=== PATIENT | male | born 1940 | race Caucasian/White ===

== ENCOUNTER → 2017-06-17 08:36 | Outpatient (CLI) | payer MEDICARE, OTHER, SELFPAY ==
[2017-06-17 13:27] LABS: Alanine Aminotransferase 32 U/L (12-78); Albumin Level 3.7 gm/dL (3.4-5.0); Albumin/Globulin Ratio 1.4 (1.1-1.8); Alkaline Phosphatase 77 U/L (46-116); Aspartate Amino Transferase 19 U/L (15-37); Bilirubin,Total 0.5 mg/dL (0.2-1.0); Blood Urea Nitrogen 17 mg/dL (7-18); Calcium 8.9 mg/dL (8.5-10.1); Carbon Dioxide 33 mmol/L (21.0-32.0); Chloride 101 mmol/L (98-107); Cholesterol 131 mg/dL (140-200); Creatinine,Serum 0.87 mg/dL (0.70-1.30); Estimated Glomerular Filt Rate 85 ml/min (>60); GFR (African American) 103 ML/MIN (>60); Globulin 2.7 gm/dl (1.3-3.2); Glucose 86 mg/dL (74-106); HDL Cholesterol 64 mg/dL (27-67); LDL Cholesterol 61 mg/dL (0-130); Sodium 138 mmol/L (136-145); Total Protein,Serum 6.4 gm/dL (6.4-8.2); Triglycerides 30 mg/dL (30-200); VLDL Cholesterol 6 mg/dL (0-40)
[2017-06-17 13:29] LABS: Basophils # 0.1 K/mm3 (0-0.2); Basophils % 0.7 % (0.1-2.0); Eosinophils # 0.3 K/mm3 (0.0-0.4); Eosinophils % 5.1 % (0.1-12.0); Hematocrit 45.8 % (42.0-52.0); Lymphocytes # 2.2 K/mm3 (0.7-4.5); Lymphocytes % 33.3 K/mm3 (10-50); Mean Corpuscular HGB Conc 32.8 g/dL (31.8-35.4); Mean Corpuscular Hemoglobin 30.2 pg (27.0-31.2); Mean Corpuscular Volume 92.2 fl (80-94); Mean Platelet Volume 7.4 fl (7.4-10.4); Monocytes # 0.4 K/mm3 (0.1-1.0); Monocytes % 6.1 % (1.7-9.3); Neutrophils # 3.6 K/mm3 (1.8-7.8); Neutrophils % 54.8 % (37.0-80.0); Platelet Count 210 K/mm3 (142-424); Red Blood Count 4.97 M/mm3 (4.60-6.20); Red Cell Distribution Width 13.3 % (11.5-17.5); White Blood Count 6.6 K/mm3 (4.8-10.8)
== END ==
PROVIDERS: PCP Internal Medicine Adolescent Medicine; Visit Provider Internal Medicine Adolescent Medicine
DX: E78.5 Hyperlipidemia, unspecified (principal); I63.50 Cerebral infarction due to unspecified occlusion or stenosis of unspecified cerebral artery
CPT/HCPCS: 36415; 80053; 80061; 85025

== ENCOUNTER 2017-09-03 11:15 | Observation (INO) ==
--- NOTE | 2017-09-03 11:54 | History & Physical Report ---
*Admission Date: 09/03/17 *Chief complaint: Dizziness and fatigue *History of present illness: 77-year-old white male with history of peripheral neuropathy, significant kyphosis with balance problems and hypertension who presented to my office this morning with a chief complaint of worsening dizziness and fatigue and sensation of falling. He denies falls at home, and reports no chest pain, dyspnea with exertion or palpitations. On presentation to my office he was noted to be hypotensive with blood pressure in the 80 range systolic, along with tachycardia with heart rate in the 140 range. EKG confirmed supraventricular tachycardia, and patient was urgently admitted to hospital for further evaluation. He denies cardiac symptoms, denies leg swelling, and has never had tachycardia or atrial fibrillation to his knowledge. [facility] History I have reviewed the patient's past medical history: Yes Medical History: Reports:: Hyperlipidemia, Hypertension Comment: Idiopathic peripheral neuropathy. Significant kyphoscoliosis with postural issues Laterality Cases: Left: Arthroscopy Shoulder Other Surgeries: Yes: Cancer Surgery (Prostatectomy) - *Social History Educational Level: Completed College Smoking Status: Never smoker Review of Systems - Review of Systems Review of systems:: unable to obtain, other, pertinent systems reviewed and negative unless documented below - Constitutional Denies body ache(s), Denies chills - Eyes Denies blind spots, Denies blurry vision - ENT Denies abnormal hearing - *Cardiovascular Denies chest pain, Denies shortness of breath, Denies irregular heart rhythm, Denies leg swelling - *Respiratory Denies chest congestion, Denies shortness of breath - *Gastrointestinal Denies abdominal pain - *Musculoskeletal Denies abnormal walking - *Neurologic Reports abnormal walking, Reports unsteadiness, Reports dizziness Meds Allergies Allergy/AdvReac Type Severity Reaction Status Date / Time No Known Allergies Allergy Unverified 05/19/17 13:59 Exam - Constitutional no acute distress Comments: Patient is pleasant, talkative, oriented 3. His kyphotic posture is noted as previously. Walks well. Heart rate tachycardic, apical pulse 140, radial pulse 80. Occasional ectopic beats. No edema noted. Lungs are clear. Abdomen soft. Assessment and Plan (1) SVT (supraventricular tachycardia) Status: Acute Category: Medical Code(s): I47.1 - Supraventricular tachycardia Most likely with new onset atrial fibrillation given his long-standing hypertension. Admit to hospital, check echocardiogram and labs. Consultation for cardiology. May need semiurgent cardioversion given his hypotensive issues here. (2) Hypotension Status: Acute Category: Medical Code(s): I95.9 - Hypotension, unspecified
--- NOTE | 2017-09-03 13:08 | Progress Note ---
[facility] Anesthesia Checklist - Patient Identification Patient Identification: Arm Band, Verbal (Name & ) - Structural Data Admitted From: Inpatient Planned Operative Procedure/s: judson Consent for Planned Operative Procedure(s) Verified: Yes Verified Documents: Surgical Consent, History and Physical - NPO Status Verified Time NPO: 07:30 - Chart Verification Results Verified: CBC, BMP - Additional verifications Patient : No Anesthesia Reactions: No Hx Blood Transfusions: No Blood Transfusion Reaction: No Cephalosporin Allergy: No Previous Colonoscopy: No - Cardiovascular Assessment Heart Sounds: S1 & S2 Pulse Rhythm: Irregular Peripheral Edema: No - Airway Assessment C-Spine Mobility Assessed: Yes TMJ Mobility Assessed: Yes Dentition: Good Dentition - Neurological Assessment Level of Consciousness: Awake, Alert, Appropriate Hx Seizures: No Numbness or tingling in extremities: No - Anesthesia Plan Anesthesia Risk discussed: Yes Anesthesia Plan: Verified ASA Class: III Anesthesia Type: MAC [facility] Anesthesia HX I have reviewed the patient's past medical history: Yes Medical History: Reports:: Hyperlipidemia, Hypertension Laterality Cases: Left: Arthroscopy Shoulder Other Surgeries: Yes: Cancer Surgery (Prostatectomy) *Family Hx:: Unable to obtain
[2017-09-03 13:11] LABS: Basophils % 0.4 % (0.1-2.0); Eosinophils # 0.1 K/mm3 (0.0-0.4); Eosinophils % 2.1 % (0.1-12.0); Hematocrit 50.6 % (42.0-52.0); Hemoglobin 16.4 g/dL (14.1-18.0); Lymphocytes # 2.4 K/mm3 (0.7-4.5); Lymphocytes % 36.4 K/mm3 (10-50); Mean Corpuscular HGB Conc 32.5 g/dL (31.8-35.4); Mean Corpuscular Hemoglobin 30.5 pg (27.0-31.2); Mean Corpuscular Volume 93.9 fl (80-94); Mean Platelet Volume 7.7 fl (7.4-10.4); Monocytes # 0.4 K/mm3 (0.1-1.0); Monocytes % 6.3 % (1.7-9.3); Neutrophils # 3.7 K/mm3 (1.8-7.8); Neutrophils % 54.8 % (37.0-80.0); Platelet Count 220 K/mm3 (142-424); Red Blood Count 5.39 M/mm3 (4.60-6.20); White Blood Count 6.7 K/mm3 (4.8-10.8)
[2017-09-03 13:30] LABS: Chol/HDL Ratio 2.1 (1-3.5); Thyroid Stimulating Hormone 1.44 uIU/ml (0.358-3.740)
--- NOTE | 2017-09-03 13:36 | Consult Report ---
History of Present Illness Consult date: 09/03/17 Requesting physician: Fernando Rick Chief complaint: Dizziness Additional Medical History:: 1. Hypertension 2. Peripheral neuropathy with chronic gait instability. 3. Hyperlipidemia 4. Questionable TIA 1 year ago (early 2016) History of present illness: 77-year-old white male with history of peripheral neuropathy, significant kyphosis with balance problems and hypertension who presented to my office this morning with a chief complaint of worsening dizziness and fatigue and sensation of falling. He denies falls at home, and reports no chest pain, dyspnea with exertion or palpitations. On presentation to my office he was noted to be hypotensive with blood pressure in the 80 range systolic, along with tachycardia with heart rate in the 140 range. EKG confirmed supraventricular tachycardia, and patient was urgently admitted to hospital for further evaluation. He denies cardiac symptoms, denies leg swelling, and has never had tachycardia or atrial fibrillation to his knowledge. Above per Dr. Rick. Patient was seen by Dr. Worthy in the hospital with carotid sinus massage slowing the rhythm down to see underlying atrial flutter. Patient continued in atrial flutter with a rate in the 140s. Denied chest pain, pressure or tightness. [facility] History Medical History: Reports:: Hyperlipidemia, Hypertension Denies:: Seizures Other Medical History: Denies: Blood Transfusion Reaction Laterality Cases: Left: Arthroscopy Shoulder Other Surgeries: Yes: Cancer Surgery (Prostatectomy) - *Social History Educational Level: Completed College Smoking Status: Never smoker *Family Hx:: Unable to obtain Meds Allergies Allergy/AdvReac Type Severity Reaction Status Date / Time No Known Allergies Allergy Unverified 05/19/17 13:59 Review of Systems - Constitutional Denies chills, Denies excessive sweating - ENT Reports poor balance - *Cardiovascular Reports lightheadedness - *Respiratory Reports shortness of breath with activity - *Gastrointestinal Denies abdominal pain - *Musculoskeletal Reports numbness - *Neurologic Reports abnormal walking, Reports unsteadiness, Reports dizziness, Denies abnormal hearing Exam Vital signs and Labs for Last 24 Hours: Temp Pulse Resp BP Pulse Ox 98.0 F 140 H 22 94/73 100 09/03/17 12:37 09/03/17 12:37 09/03/17 12:37 09/03/17 12:37 09/03/17 12:37 Laboratory Results - last 24 hr 09/03/17 12:45: Triglycerides 50, Cholesterol 130 L, LDL Cholesterol 58, VLDL Cholesterol 10, HDL Cholesterol 62, Cholesterol/HDL Ratio 2.1, TSH 1.44 09/03/17 12:45: WBC 6.7, RBC 5.39, Hgb 16.4, Hct 50.6, MCV 93.9, MCH 30.5, MCHC 32.5, RDW 13.0, Plt Count 220, MPV 7.7, Neut % (Auto) 54.8, Lymph % (Auto) 36.4 , [place] % (Auto) 6.3, Eos % (Auto) 2.1, Baso % (Auto) 0.4, Neut # (Auto) 3.7, Lymph # (Auto) 2.4, [place] # (Auto) 0.4, Eos # (Auto) 0.1, Baso # (Auto) 0.0 I & O for Last 24 hours: Intake & Output 09/01/17 09/02/17 09/03/17 09/04/17 11:59 11:59 11:59 11:59 Weight 143 lb - *Routine Neck Exam Absent: JVD, carotid bruit - *Routine Respiratory Exam Present: CTA bilaterally - *Routine Cardiovascular Exam Present: tachycardia - *Routine Extremities Exam Absent: edema - *Routine Neurological Exam Present: alert, oriented X3, moving all extremities Assessment and Plan (1) SVT (supraventricular tachycardia) Current visit: No Status: Acute Category: Medical Code(s): I47.1 - Supraventricular tachycardia (2) Hypotension Current visit: No Status: Acute Category: Medical Code(s): I95.9 - Hypotension, unspecified (3) Paroxysmal atrial flutter Current visit: Yes Status: Acute Category: Medical Code(s): I48.92 - Unspecified atrial flutter - Assessment and plan all Dx Assessment and Plan for all problems:: 1. Plan was to take the patient to the cardiac Director [facility] to perform a MARIKA and cardioversion. When the patient was moving from the stretcher to the table in the cardiac Director [facility] he converted to sinus rhythm at a rate of about 65 bpm within a couple of minutes the patient again went back into atrial flutter with a rate in the 130s-140s. IV Lopressor 5 mg was given without conversion to sinus rhythm. Patient was then given an IV bolus of Cardizem 10 mg with a Cardizem drip started at 5 mg/h. 2. Transthoracic echocardiogram will be obtained 3. The plan would be to try to restore normal sinus rhythm with IV Cardizem, however, if hypotension becomes problematic, then consideration for transfer to tertiary center for ablation should be considered.
[2017-09-03 14:08] LABS: Anion Gap 10.1 mEq/L (5-15); Blood Urea Nitrogen 30 mg/dL (7-18); Carbon Dioxide 32 mmol/L (21.0-32.0); Chloride 99 mmol/L (98-107); Creatine Kinase 73 U/L (39-308); Glucose 98 mg/dL (74-106); Potassium 4.1 mmoL/L (3.5-5.1); Sodium 137 mmol/L (136-145)
[2017-09-04 06:55] VITALS: BP 95/51
--- NOTE | 2017-09-04 07:51 | Pharmacy Consult Notes ---
[facility] Pharmacy VTE Monitoring - Patient Demographics Admission date: 09/03/17 Report Date: 09/04/17 Time: 07:51 Allergies/Adverse Reactions: Patient Allergies No Known Allergies Allergy (Unverified 05/19/17 13:59) Height: 1.7 m Weight: 65.913 kg Patient Problems: Current Active Problems Paroxysmal atrial flutter (Acute) - VTE Risk Labs: VTE Related Lab Results Hgb 16.4 g/dL (14.1-18.0) 09/03/17 12:45 Hct 50.6 % (42.0-52.0) 09/03/17 12:45 Plt Count 220 K/mm3 (142-424) 09/03/17 12:45 BUN 30 mg/dL (7-18) H 09/03/17 12:45 Creatinine 1.04 mg/dL (0.70-1.30) 09/03/17 12:45 Estimated Creat Clear 54 mL/min (0-300) 09/03/17 12:45 Was VTE Risk Assessment Performed: Yes VTE Score: 1 VTE Risk Level: Very Low Risk Clinical Trial Participant: No - Prophylaxis VTE Prophylaxis Ordered?: Yes Types of VTE Prophylaxis: TEDS Knee High, Pharmacological Location of Applied Device: Bilateral Lower Extremeties Pharmacologic Type: Enoxaparin
--- NOTE | 2017-09-04 08:50 | Discharge Summary ---
General - General Admission date: 09/03/17 Discharge date: 09/04/17 HPI HPI: 77-year-old white male with history of peripheral neuropathy, significant kyphosis with balance problems and hypertension who presented to my office this morning with a chief complaint of worsening dizziness and fatigue and sensation of falling. He denies falls at home, and reports no chest pain, dyspnea with exertion or palpitations. On presentation to my office he was noted to be hypotensive with blood pressure in the 80 range systolic, along with tachycardia with heart rate in the 140 range. EKG confirmed supraventricular tachycardia, and patient was urgently admitted to hospital for further evaluation. He denies cardiac symptoms, denies leg swelling, and has never had tachycardia or atrial fibrillation to his knowledge. Hospital Course Hospital Course: Patient was admitted to hospital, and placed on IV fluids and telemetry monitoring. Carotid massage maneuvers with ventricular slowing revealed patient was in atrial flutter. Patient was taken to cardiology suite by our cardiology service to perform MARIKA to evaluate for cardioversion after valvular examination, and spontaneously converted when moving over to the table from the stretcher. However, he then went back into the SVT/A. fib at a rhythm. MARIKA was done, showing no valvular pathology of significance but ejection fraction diminished at 40%. Patient was then taken back to stepdown unit, placed on Cardizem drip with careful blood pressure monitoring. About 2 hours after Cardizem infusion patient converted to sinus rhythm, with resting sinus rates in the low 50s. Blood pressure actually improved into the 100s-110 range and patient felt much better. Through the night he has been in sinus rhythm, in the 40s while sleeping and when awakened and stirring around up in the low 60s. He feels well. I discussed case with EP at [facility]-were patient wishes to be further evaluated-Dr. Moore -recommended discharge home on oral Cardizem, anticoagulation with Xarelto and close follow-up with his office. We will be faxing face sheet information, medicine list and this document to his office and patient is instructed to contact me over the weekend or report to the emergency department if heart rate elevates back into the 140s. Medicines for blood pressure will be held as noted in the chart summary as below. Objective Vital signs: Temp Pulse Resp BP Pulse Ox 97.8 F 61 20 95/51 99 09/04/17 04:00 09/04/17 06:45 09/04/17 06:45 09/04/17 06:45 09/04/17 06:45 Narrative: Patient is pleasant, alert, oriented 3. Heart rate regular in the low 60s. Blood pressure 110/80. Cranial nerves intact. Oropharynx clear. Lungs are clear, heart rate regular as noted above. No edema, previously noted kyphoscoliosis. Results Labs on day of discharge: Labs from last 24 hours 09/03/17 09/03/17 09/03/17 23:45 20:50 17:55 WBC RBC Hgb Hct MCV MCH MCHC RDW Plt Count MPV Neut % (Auto) Lymph % (Auto) [place] % (Auto) Eos % (Auto) Baso % (Auto) Neut # (Auto) Lymph # (Auto) [place] # (Auto) Eos # (Auto) Baso # (Auto) Sodium Potassium Chloride Carbon Dioxide Anion Gap BUN Creatinine Estimated Creat Clear Estimated GFR Est GFR ( Amer) Glucose Magnesium Total Creatine Kinase CK-MB (CK-2) CK-MB (CK-2) Rel Index Troponin I 0.03 0.02 < 0.02 B-Natriuretic Peptide Triglycerides Cholesterol LDL Cholesterol VLDL Cholesterol HDL Cholesterol Cholesterol/HDL Ratio TSH 09/03/17 09/03/17 09/03/17 15:00 12:45 12:45 WBC RBC Hgb Hct MCV MCH MCHC RDW Plt Count MPV Neut % (Auto) Lymph % (Auto) [place] % (Auto) Eos % (Auto) Baso % (Auto) Neut # (Auto) Lymph # (Auto) [place] # (Auto) Eos # (Auto) Baso # (Auto) Sodium 137 Potassium 4.1 Chloride 99 Carbon Dioxide 32 Anion Gap 10.1 BUN 30 H Creatinine 1.04 Estimated Creat Clear 54 Estimated GFR 69 Est GFR ( Amer) 84 Glucose 98 Magnesium 1.8 Total Creatine Kinase 73 CK-MB (CK-2) 1.4 CK-MB (CK-2) Rel Index 1.9 Troponin I < 0.02 < 0.02 B-Natriuretic Peptide 135 H Triglycerides Cholesterol LDL Cholesterol VLDL Cholesterol HDL Cholesterol Cholesterol/HDL Ratio TSH 09/03/17 09/03/17 12:45 12:45 WBC 6.7 RBC 5.39 Hgb 16.4 Hct 50.6 MCV 93.9 MCH 30.5 MCHC 32.5 RDW 13.0 Plt Count 220 MPV 7.7 Neut % (Auto) 54.8 Lymph % (Auto) 36.4 [place] % (Auto) 6.3 Eos % (Auto) 2.1 Baso % (Auto) 0.4 Neut # (Auto) 3.7 Lymph # (Auto) 2.4 [place] # (Auto) 0.4 Eos # (Auto) 0.1 Baso # (Auto) 0.0 Sodium Potassium Chloride Carbon Dioxide Anion Gap BUN Creatinine Estimated Creat Clear Estimated GFR Est GFR ( Amer) Glucose Magnesium Total Creatine Kinase CK-MB (CK-2) CK-MB (CK-2) Rel Index Troponin I B-Natriuretic Peptide Triglycerides 50 Cholesterol 130 L LDL Cholesterol 58 VLDL Cholesterol 10 HDL Cholesterol 62 Cholesterol/HDL Ratio 2.1 TSH 1.44 DS: Diagnosis - Discharge Diagnosis (1) SVT (supraventricular tachycardia) Status: Acute (2) Hypotension Status: Acute (3) Paroxysmal atrial flutter Status: Acute Discharge Plan - Patient Discharge Instructions ACTIVITY: Limited activity DIET: continue same diet - Follow up Plan Follow up with: Mxaimo Moore [Referring] - Fernando Rick MD [Primary Care Provider] - 09/15/17 Disposition: Home, Self-Correction Medications: Home Medications Medication Instructions Recorded Confirmed Type Atorvastatin Calcium [Atorvastatin 80 mg PO DAILY 09/03/17 09/03/17 History 80mg Tab] Clopidogrel Bisulfate [Plavix 75mg 75 mg PO DAILY 09/03/17 09/03/17 History Tab] Duloxetine HCl [Duloxetine HCl] 60 mg PO DAILY 09/03/17 09/03/17 History buPROPion HCl [Wellbutrin SR 150mg 150 mg PO DAILY 09/03/17 09/03/17 History Tablet] Prescriptions/Medication Reconciliation: New dilTIAZem HCl [Cardizem CD 120mg Cap] 120 mg PO DAILY #30 cap Rivaroxaban [Xarelto] 20 mg PO DAILY 30 Days #30 tab Continue Duloxetine HCl [Duloxetine HCl] 60 mg PO DAILY buPROPion HCl [Wellbutrin SR 150mg Tablet] 150 mg PO DAILY Atorvastatin Calcium [Atorvastatin 80mg Tab] 80 mg PO DAILY Carvedilol [Carvedilol 12.5mg Tab] 12.5 mg PO DAILY 30 Days #30 tab Discontinued Clopidogrel Bisulfate [Plavix 75mg Tab] 75 mg PO DAILY
--- NOTE | 2017-09-04 13:58 | Cardiology Report ---
PROCEDURE: 2-D M-mode and color Doppler study INDICATIONS FOR THE TEST: Chest pain COPD Heart Murmur Tobacco Smoking Palpitations Fatigue Syncope Edema Hypertension Diabetes Mellitus Rheumatic Fever SOBXDOE Obesity Hyperlipidemia Family History HD Additional History AF/FLUTTER PATIENT INFORMATION HEIGHT: 67 WEIGHT:148 GENDER: Male B/P:95/62 2-D/M-MODE INTERPRETATION: 2-D MEASUREMENTS OBSERVED VALUES IN CMS Right Ventricular Dimension (RVDd) 3.3 Interventricular Septum (Thickness)(IVsd) 1.0 Left Ventricular Internal Dimensions(LVIDd) 4.6 Left Ventricular Posterior Wall (Thickness)(LVPWd) 1.2 Aortic Root 4.6 Aortic Cusp Separation 1.4 Left Atrial Dimensions (LAD) 3.1 2D 1. Technically difficult study because of the patient's factor and poor acoustic windows, endocardial surfaces and valvular structures are poorly visualized. 2. The left atrium is qualitatively mildly enlarged, left ventricle is normal size, there is mild concentric left ventricular hypertrophy, visually estimated ejection fraction 55% with no obvious regional wall motion abnormality. 3. The right atrium and right ventricle are qualitatively mildly enlarged with normal contractility. 4. The aortic valve is thickened and calcified with restriction the leaflet mobility. 5. The mitral and tricuspid valve leaflets are minimally thickened. 6. The pulmonic valve is poorly visualized. 7. No significant pericardial effusion noted. DOPPLER INTERROGATION: Doppler interrogation of the aortic, mitral and tricuspid valve reveals presence of mild mitral and tricuspid regurgitation, calculated right ventricular systolic pressure is 28 mmHg, diastolic parameters are inconclusive. The aortic out flow velocity is not significantly increased in this study to suggest severe aortic stenosis. CONCLUSION: 1. Technically difficult study because of the patient's factor and poor acoustic windows, endocardial surfaces and valvular structures are poorly visualized. 2. Mildly enlarged left atrium, normal left ventricular size, mild concentric left ventricular hypertrophy, visually estimated ejection fraction 55% with no obvious regional wall motion abnormality, diastolic parameters are inconclusive. 3. Thickened and calcified aortic valve with restriction the leaflet mobility, however Doppler was not suggestive of any significant aortic stenosis, there is no aortic insufficiency present. 4. Mild mitral and tricuspid regurgitation, calculated right ventricular systolic pressure is 28 mmHg. 5. Mildly enlarged right ventricle with normal contractility. 6. No significant pericardial effusion noted.
== END 2017-09-04 10:18 | disposition home or self-care (01) ==
LOC: 2ND
PROVIDERS: ADMIT Internal Medicine Adolescent Medicine; ATTEND Internal Medicine Adolescent Medicine

== ENCOUNTER → 2019-06-29 11:25 | Outpatient (CLI) | payer MEDICARE, OTHER, SELFPAY ==
--- NOTE | 2019-06-29 11:34 | XR_ITS ---
PROCEDURE: XR KUB CLINICAL INDICATION: FECAL SMEARING COMPARISON: No exams were available for comparison FINDINGS: There are surgical clips at the prostate region in the lower pelvis. 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 No intestinal obstruction. There is a mild amount of retained colonic feces in the right colon but no evidence of rectal fecal impaction IMPRESSION: No acute findings. Dictated by: Vishnu Mcclain MD 06/29/2019 12:52 Electronically signed by Vishnu Mcclain MD in [facility] 06/29/2019 12:52
== END ==
PROVIDERS: PCP Internal Medicine Adolescent Medicine; Visit Provider Internal Medicine Adolescent Medicine
DX: R15.1 Fecal smearing (principal)
CPT/HCPCS: 74018

== ENCOUNTER 2019-12-13 09:52 | Outpatient (RCR) | payer MEDICARE, OTHER, SELFPAY ==
--- NOTE | 2019-12-13 14:09 | HMH.PTOPEV ---
PT Outpatient Evaluation Rehab PT Outpatient Evaluation Start: 12/13/19 12:30 Freq: Status: Active Protocol: Document 12/13/19 12:30 [email or web address] (Rec: 12/13/19 14:09 [email or web address] [id number]) Electronically Signed By Sanchez Rivas, PT 12/13/19 12:30 Outpatient Therapy Subjective History Subjective History Pt. is a 79 year old male who presents to outpatient PT w/ complaints of chronic and activity dependent BLE weakness. Pt. reports feeling weak behind the knees w/ standing/walking /riding the lawnmower. Pt. reports no falls in the past 6 months. Pt. also denies LOB or having to catch himself to prevent a fall from LOB. Pt. reports I only came here because my had set this appointment up for me. Pt. reported wanting to discontinue Physical Therapy services after today and stated I'd better not get committed. Current medications include Duloxetine , Carvedilol, Eliquis, Memantine, Donepezil, and Mirtazapine. PMH denies having surgeries in the past. Chief Complaint Weakness Symptoms Relieved By Rest/Positioning Symptoms Aggravated By Standing Prior Functional Limitations None Current Functional Limitations None Symptom Description Activity Dependent Level of pain today (0-10) 0 Pain scale - at its best (0-10) 0 Pain scale - at its worst (0-10) 0 Hip/Knee Eval Gait Observation General Gait Pattern Observation No Deviations/Normal Assistive Device Assistive Devices None / NA Palpation Tenderness bilateral Knee Palpation Finding None/Normal Hip Palpation Findings None/Normal MMT Hip Strength Reason Not Measured WFL Knee Strength Reason Not Measured WFL Knee Extensors Muscle Tone Description Normal Knee Flexors Muscle Tone Description Normal Hip Extensors Muscle Tone Description Normal Hip Flexors Muscle Tone Description Normal ROM Hip ROM Reason Not Measured Within Functional Limits Knee ROM Reason Not Measured Within Functional Limits DTR Rt Patellar 2+ Lt Patellar 2+ Rt Ankle 0 Lt Ankle
== END 2019-12-13 16:12 | disposition home or self-care (01) ==
LOC: PT.CARL 09:52
PROVIDERS: PCP Internal Medicine Adolescent Medicine; Visit Provider Internal Medicine Adolescent Medicine
DX: R29.898 Other symptoms and signs involving the musculoskeletal system (principal)
CPT/HCPCS: 97110; 97163

== ENCOUNTER 2020-04-17 11:00 | Outpatient (RCR) | payer MEDICARE, OTHER, SELFPAY ==
--- NOTE | 2020-04-12 14:54 | HMH.PTOPEV ---
PT Outpatient Evaluation Rehab PT Outpatient Evaluation Start: 04/12/20 13:45 Freq: Status: Active Protocol: Document 04/12/20 13:45 [email or web address] (Rec: 04/12/20 14:53 [email or web address] [id number]) Electronically Signed By Sanchez Rivas, PT 04/12/20 13:45 Outpatient Therapy Subjective History Subjective History Pt. is a 79 year old male who presents to Outpatient PT clinic w/ complaints of activity dependent and acute BLE P! and imbalance of insidious onset last week. Pt. reports symptoms worsen w/ prolonged walking. Pt. denies currently/ previously(prior to this date) ambulating w/ an AD. Pt. denies having any recent falls , but does report grabbing onto surfaces around the house when he's ambulating to avoid falling. Pt. reports having one step to get into the garage and multiple steps to ascend/descend into the basement. Current medications include Duloxetine, Carvedilol , Eliquis, Memantine, Donepezil, and Mirtazapine. PMH denies having surgeries in the past. Chief Complaint Pain,Other Symptom Type Ache,Other Symptoms Relieved By Rest/Positioning Symptoms Aggravated By Standing,Physical Activity, Twisting,Walking Prior Functional Limitations None Current Functional Limitations Standing,Recreation Activity, Walking,Stairs,Balance Symptom Description Activity Dependent Level of pain today (0-10) 0 Pain scale - at its best (0-10) 0 Pain scale - at its worst (0-10) 3 Hip/Knee Eval Gait Observation General Gait Pattern Observation Antalgic Gait,Ataxic Gait, Shuffling Step,Hips Posterior to CHENG Assistive Device Assistive Devices None / NA Palpation Tenderness bilateral Knee Palpation Finding None/Normal Hip Palpation Findings None/Normal MMT Hip Flexion Strength Grade 4 Good Hip Abduction Strength Grade 4- Good- Hip Adduction Strength Grade 4- Good- Hip Extension Strength Grade 4- Good- Gluteus Hang Strength Grade 4- Good-
== END 2020-05-22 16:44 | disposition home or self-care (01) ==
LOC: PT.CARL 11:00
PROVIDERS: PCP Internal Medicine Adolescent Medicine; Visit Provider Internal Medicine Adolescent Medicine
DX: R27.0 Ataxia, unspecified (principal)
CPT/HCPCS: 97110; 97112; 97163

== ENCOUNTER → 2020-11-16 14:04 | Outpatient (CLI) | payer MEDICARE, OTHER, SELFPAY ==
--- NOTE | 2020-11-16 14:14 | XR_ITS ---
PROCEDURE: XR SACROILIAC JOINT BI MIN 3V X-ray left hip 2-3 view with pelvis X-ray right hip 2-3 view with pelvis X-ray lumbar spine minimum four views CLINICAL INDICATION: LOW BACK PAIN AT MULTIPLE SITES COMPARISON: CR XR HIP LT 2-3V W/PELVIS from 11/16/2020 CR XR HIP RT 2-3V W/PELVIS from 11/16/2020 CR XR LUMBAR SPINE MIN 4V from 11/16/2020 FINDINGS: Views of the bilateral SI joints show minimal sclerotic change. No lytic or blastic lesion noted. AP pelvis and AP and frogleg views of both hips show severe zpre-sj-qqnn degenerative changes of both hip joints with extensive sclerotic change and multiple subchondral cysts. Surgical clips noted in the pelvis. Minimal sclerotic change of the SI joints. No acute fracture or dislocation of either hip. Five views of the lumbar spine show severe degenerative change of L5-S1 and moderate to severe degenerative change of L4-5. Moderate diffuse degenerative change elsewhere throughout the lumbar spine and some degenerative change of the lower thoracic spine noted. Mild dextroscoliosis. Moderate bilateral facet spondylosis of L4-5 and L5-S1 is present. IMPRESSION: Minimal sclerotic change of the SI joints. Severe vaio-je-kvnl degenerative changes of both hip joints. No acute fracture or dislocation of the pelvis or hips. Severe degenerative change of L5-S1 and moderate to severe degenerative change of L4-5, moderate diffuse degenerative change elsewhere throughout the lumbar spine. Moderate bilateral facet spondylosis of L4-5 and L5-S1. No acute fracture or subluxation of the lumbar spine. Dictated by: Ck Turcios MD 11/16/2020 16:23 Ck Turcios MD in [place] 11/16/2020 16:23
--- NOTE | 2020-11-16 14:14 | XR_ITS ---
PROCEDURE: XR SACROILIAC JOINT BI MIN 3V X-ray left hip 2-3 view with pelvis X-ray right hip 2-3 view with pelvis X-ray lumbar spine minimum four views CLINICAL INDICATION: LOW BACK PAIN AT MULTIPLE SITES COMPARISON: CR XR HIP LT 2-3V W/PELVIS from 11/16/2020 CR XR HIP RT 2-3V W/PELVIS from 11/16/2020 CR XR LUMBAR SPINE MIN 4V from 11/16/2020 FINDINGS: Views of the bilateral SI joints show minimal sclerotic change. No lytic or blastic lesion noted. AP pelvis and AP and frogleg views of both hips show severe ytpn-vi-lfvb degenerative changes of both hip joints with extensive sclerotic change and multiple subchondral cysts. Surgical clips noted in the pelvis. Minimal sclerotic change of the SI joints. No acute fracture or dislocation of either hip. Five views of the lumbar spine show severe degenerative change of L5-S1 and moderate to severe degenerative change of L4-5. Moderate diffuse degenerative change elsewhere throughout the lumbar spine and some degenerative change of the lower thoracic spine noted. Mild dextroscoliosis. Moderate bilateral facet spondylosis of L4-5 and L5-S1 is present. IMPRESSION: Minimal sclerotic change of the SI joints. Severe rjlb-ul-kkvn degenerative changes of both hip joints. No acute fracture or dislocation of the pelvis or hips. Severe degenerative change of L5-S1 and moderate to severe degenerative change of L4-5, moderate diffuse degenerative change elsewhere throughout the lumbar spine. Moderate bilateral facet spondylosis of L4-5 and L5-S1. No acute fracture or subluxation of the lumbar spine. Dictated by: Ck Turcios MD 11/16/2020 16:23 Ck Turcios MD in [place] 11/16/2020 16:23
--- NOTE | 2020-11-16 14:14 | XR_ITS ---
PROCEDURE: XR SACROILIAC JOINT BI MIN 3V X-ray left hip 2-3 view with pelvis X-ray right hip 2-3 view with pelvis X-ray lumbar spine minimum four views CLINICAL INDICATION: LOW BACK PAIN AT MULTIPLE SITES COMPARISON: CR XR HIP LT 2-3V W/PELVIS from 11/16/2020 CR XR HIP RT 2-3V W/PELVIS from 11/16/2020 CR XR LUMBAR SPINE MIN 4V from 11/16/2020 FINDINGS: Views of the bilateral SI joints show minimal sclerotic change. No lytic or blastic lesion noted. AP pelvis and AP and frogleg views of both hips show severe gtqv-yx-tlvc degenerative changes of both hip joints with extensive sclerotic change and multiple subchondral cysts. Surgical clips noted in the pelvis. Minimal sclerotic change of the SI joints. No acute fracture or dislocation of either hip. Five views of the lumbar spine show severe degenerative change of L5-S1 and moderate to severe degenerative change of L4-5. Moderate diffuse degenerative change elsewhere throughout the lumbar spine and some degenerative change of the lower thoracic spine noted. Mild dextroscoliosis. Moderate bilateral facet spondylosis of L4-5 and L5-S1 is present. IMPRESSION: Minimal sclerotic change of the SI joints. Severe ercg-ys-yxfa degenerative changes of both hip joints. No acute fracture or dislocation of the pelvis or hips. Severe degenerative change of L5-S1 and moderate to severe degenerative change of L4-5, moderate diffuse degenerative change elsewhere throughout the lumbar spine. Moderate bilateral facet spondylosis of L4-5 and L5-S1. No acute fracture or subluxation of the lumbar spine. Dictated by: Ck Turcios MD 11/16/2020 16:23 Ck Turcios MD in [place] 11/16/2020 16:23
--- NOTE | 2020-11-16 14:14 | XR_ITS ---
PROCEDURE: XR SACROILIAC JOINT BI MIN 3V X-ray left hip 2-3 view with pelvis X-ray right hip 2-3 view with pelvis X-ray lumbar spine minimum four views CLINICAL INDICATION: LOW BACK PAIN AT MULTIPLE SITES COMPARISON: CR XR HIP LT 2-3V W/PELVIS from 11/16/2020 CR XR HIP RT 2-3V W/PELVIS from 11/16/2020 CR XR LUMBAR SPINE MIN 4V from 11/16/2020 FINDINGS: Views of the bilateral SI joints show minimal sclerotic change. No lytic or blastic lesion noted. AP pelvis and AP and frogleg views of both hips show severe pqqv-dn-pims degenerative changes of both hip joints with extensive sclerotic change and multiple subchondral cysts. Surgical clips noted in the pelvis. Minimal sclerotic change of the SI joints. No acute fracture or dislocation of either hip. Five views of the lumbar spine show severe degenerative change of L5-S1 and moderate to severe degenerative change of L4-5. Moderate diffuse degenerative change elsewhere throughout the lumbar spine and some degenerative change of the lower thoracic spine noted. Mild dextroscoliosis. Moderate bilateral facet spondylosis of L4-5 and L5-S1 is present. IMPRESSION: Minimal sclerotic change of the SI joints. Severe kikh-pr-uomb degenerative changes of both hip joints. No acute fracture or dislocation of the pelvis or hips. Severe degenerative change of L5-S1 and moderate to severe degenerative change of L4-5, moderate diffuse degenerative change elsewhere throughout the lumbar spine. Moderate bilateral facet spondylosis of L4-5 and L5-S1. No acute fracture or subluxation of the lumbar spine. Dictated by: Ck Turcios MD 11/16/2020 16:23 Ck Turcios MD in [place] 11/16/2020 16:23
== END ==
PROVIDERS: PCP Internal Medicine Adolescent Medicine; Visit Provider Internal Medicine Adolescent Medicine
DX: M25.552 Pain in left hip (principal); M25.551 Pain in right hip; M53.3 Sacrococcygeal disorders, not elsewhere classified; M54.5 Low back pain
CPT/HCPCS: 72110; 72202; 73502

== ENCOUNTER → 2021-04-30 19:47 | Outpatient (CLI) | payer MEDICARE, OTHER, SELFPAY ==
[2021-04-30 20:04] LABS: Basophils # 0.1 K/mm3 (0-0.2); Eosinophils # 0.3 K/mm3 (0.0-0.4); Eosinophils % 5.2 % (0.1-12.0); Hematocrit 42.2 % (42.0-52.0); Hemoglobin 14.2 g/dL (14.1-18.0); Lymphocytes # 1.8 K/mm3 (0.7-4.5); Lymphocytes % 31.9 % (10-50); Mean Corpuscular HGB Conc 33.7 g/dL (31.8-35.4); Mean Corpuscular Hemoglobin 30.8 pg (27.0-31.2); Mean Corpuscular Volume 91.4 fl (80-94); Mean Platelet Volume 9.3 fl (7.4-10.4); Monocytes # 0.4 K/mm3 (0.1-1.0); Monocytes % 7.6 % (1.7-9.3); Neutrophils # 3.1 K/mm3 (1.8-7.8); Neutrophils % 54.4 % (37.0-80.0); Platelet Count 249 K/mm3 (142-424); Red Blood Count 4.61 M/mm3 (4.60-6.20); Red Cell Distribution Width 13.3 % (11.5-17.5); White Blood Count 5.8 K/mm3 (4.8-10.8)
[2021-04-30 20:43] LABS: Alanine Aminotransferase 13 U/L (12-78); Albumin Level 3.9 g/dl (3.5-5.0); Albumin/Globulin Ratio 1.4 (1.1-1.8); Alkaline Phosphatase 102 U/L (38-126); Anion Gap 8.5 mEq/L (5-15); Aspartate Amino Transferase 29 U/L (17-59); Bilirubin,Total 0.3 mg/dl (0.2-1.3); Blood Urea Nitrogen 34 mg/dl (9-20); Calcium 9.8 mg/dl (8.4-10.2); Carbon Dioxide 31 mmol/L (22.0-30.0); Chloride 102 mmol/L (98-107); Estimated Glomerular Filt Rate 72 ml/min (>60); GFR (African American) 87 ML/MIN (>60); Globulin 2.8 g/dL (1.3-3.2); Glucose 85 mg/dl (74-100); Potassium 4.5 mmoL/L (3.5-5.1); Sodium 137 mmol/L (136-145); Total Protein,Serum 6.7 g/dl (6.3-8.2)
[2021-04-30 21:31] LABS: Vitamin B12 625 pg/mL (239-931)
[2021-04-30 22:13] LABS: Free Thyroxine Index 3.4 ug/dL (5.93-13.13); T4 (Thyroxine) 9.7 ug/dl (5.53-11.0); Triiodothryronine (T3) Uptake 35 % (23.5-40.5)
[2021-04-30 22:27] LABS: Thyroid Stimulating Hormone 1.87 uIU/mL (0.465-4.68)
== END ==
PROVIDERS: Visit Provider Internal Medicine Adolescent Medicine
DX: I10 Essential (primary) hypertension (principal); R53.81 Other malaise
CPT/HCPCS: 80053; 82607; 84436; 84443; 84479; 85025

== ENCOUNTER → 2022-01-13 13:34 | Outpatient (CLI) | payer MEDICARE, OTHER, SELFPAY ==
--- NOTE | 2022-01-13 13:41 | XR_ITS ---
FINAL REPORT CLINICAL HISTORY: frequent falls COMPARISON: November 17, 2019 FINDINGS: SACROILIAC JOINTS Three views demonstrate no acute fracture or dislocation. There are mild degenerative changes. The sacral arches are intact. No soft tissue abnormality is seen. IMPRESSION: Mild degenerative change of the SI joints with no acute bony abnormality. Reviewed, Interpreted and Dictated by Donnie Abdi III, MD Transcribed by Jade Avalos Authenticated and [facility]
--- NOTE | 2022-01-13 13:41 | XR_ITS ---
FINAL REPORT CLINICAL HISTORY: frequent falls COMPARISON: 11/16/2020 FINDINGS: LEFT HIP Two views of the left hip demonstrate no acute fracture or dislocation. There are severe degenerative changes. The visualized bony structures are well aligned. There are postoperative changes in the lower pelvis. IMPRESSION: Severe degenerative change with no acute bony abnormality. Reviewed, Interpreted and Dictated by Donnie Abdi III, MD Transcribed by Jade Avalos Authenticated and [facility]
--- NOTE | 2022-01-13 13:41 | XR_ITS ---
FINAL REPORT CLINICAL HISTORY: LEFT HIP PAIN; FREQUENT FALLS COMPARISON: 11/16/2020 FINDINGS: RIGHT HIP Two views of the right hip with an AP pelvis demonstrate no acute fracture or dislocation. There are severe degenerative changes of both hips. The visualized bony structures are well aligned. There are postoperative changes in the lower pelvis. IMPRESSION: Severe degenerative change with no acute bony abnormality. Reviewed, Interpreted and Dictated by Donnie Abdi III, MD Transcribed by Jade Avalos Authenticated and [facility]
--- NOTE | 2022-01-13 13:43 | XR_ITS ---
FINAL REPORT CLINICAL HISTORY: LEFT HIO PAIN; FREQUENT FALLS COMPARISON: November 16, 2020 FINDINGS: LUMBAR SPINE 5 views of the lumbar spine were obtained. There is no evidence of fracture or dislocation. There is mild rightward curvature. The vertebral alignment is normal. There is moderate degenerative change with facet arthropathy in the lower lumbar spine. There are mild vascular calcifications. IMPRESSION: Moderate degenerative change with no acute bony abnormality. Reviewed, Interpreted and Dictated by Donnie Abdi III, MD Transcribed by Jade Avalos Authenticated and [facility]
== END ==
PROVIDERS: PCP Internal Medicine Adolescent Medicine; Visit Provider Internal Medicine Adolescent Medicine
DX: M53.3 Sacrococcygeal disorders, not elsewhere classified (principal); M54.50 Low back pain, unspecified; M25.552 Pain in left hip; M25.551 Pain in right hip; R29.6 Repeated falls
CPT/HCPCS: 72110; 72202; 73502

== ENCOUNTER 2022-01-30 18:05 | Observation (INO) | payer MEDICARE, OTHER, SELFPAY ==
[2022-01-30 18:05] VITALS: BP 130/66; PULSE 65; RESP 25; TEMP 37.2; O2SAT 96; BMI 22.8
[2022-01-30 18:30] VITALS: BP 137/64; PULSE 66; RESP 18; O2SAT 96
--- NOTE | 2022-01-30 18:46 | XR_ITS ---
PROCEDURE INFORMATION: Exam: XR Chest Exam date and time: 01/30/2022 7:05 PM Age: 81 years old Clinical indication: Dyspnea; Additional info: Gen weakness TECHNIQUE: Imaging protocol: Radiologic exam of the chest. Views: 1 view. Portable AP exam 7:07 p.m. COMPARISON: CR CXR2 XR chest AP 09/03/2017 2:57 PM FINDINGS: Tubes, catheters and devices: Dual lead left subclavian cardiac pacemaker is new since the prior chest x-ray. Overlying ladle repairer electrodes. Lungs: Chronic interstitial scarring and mild subsegmental atelectasis at the left lung base. No focal consolidation. Pulmonary vessels do not appear significantly congested. Pleural spaces: Unremarkable. No significant pleural effusion. No pneumothorax. Heart/Mediastinum: The cardiac silhouette is normal. Bones/joints: There are spinal degenerative changes, with multilevel disc narrrowing and spondylosis. IMPRESSION: 1. No acute findings. 2. Multiple nonemergency and chronic findings as above.
[2022-01-30 18:59] LABS: Basophils % 0.7 % (0.1-2.0); Eosinophils # 0.2 K/mm3 (0.0-0.4); Eosinophils % 3.8 % (0.1-12.0); Hematocrit 42.8 % (42.0-52.0); Hemoglobin 13.6 g/dL (14.1-18.0); Lymphocytes # 0.5 K/mm3 (0.7-4.5); Lymphocytes % 7.5 % (10-50); Mean Corpuscular HGB Conc 31.7 g/dL (31.8-35.4); Mean Corpuscular Hemoglobin 29.8 pg (27.0-31.2); Monocytes # 0.4 K/mm3 (0.1-1.0); Monocytes % 6.5 % (1.7-9.3); Neutrophils # 5.2 K/mm3 (1.8-7.8); Neutrophils % 81.6 % (37.0-80.0); Platelet Count 189 K/mm3 (142-424); Red Blood Count 4.56 M/mm3 (4.60-6.20); Red Cell Distribution Width 14.2 % (11.5-17.5); White Blood Count 6.4 K/mm3 (4.8-10.8)
[2022-01-30 19:00] VITALS: BP 150/70; PULSE 68; RESP 18; O2SAT 98
[2022-01-30 19:00] LABS: Chloride 95 mmol/L (98-107)
[2022-01-30 19:01] LABS: Potassium 3.8 mmoL/L (3.5-5.1); Sodium 133 mmol/L (136-145)
[2022-01-30 19:03] LABS: Blood Urea Nitrogen 21 mg/dl (9-20); Creatinine Clearance Estimated 55 mL/min (50-200); Estimated Glomerular Filt Rate 72 ml/min (>60); GFR (African American) 87 ML/MIN (>60)
[2022-01-30 19:04] LABS: Anion Gap 10.8 mEq/L (5-15); Calcium 9.3 mg/dl (8.4-10.2); Carbon Dioxide 31 mmol/L (22.0-30.0); Glucose 112 mg/dl (74-100)
[2022-01-30 19:16] LABS: Troponin I 0.04 ng/ml (0.00-0.034)
[2022-01-30 19:45] LABS: Influenza A, PCR Not Detected (NotDetected); Influenza B, PCR Not Detected (NotDetected)
--- NOTE | 2022-01-30 20:03 | HMH.EDGENADL ---
Discharge Plan Disposition Patient Disposition: Admitted As Inpatient Condition: Fair Chief Complaint: Weakness Prescriptions Prescriptions: No Action bupropion HCl 150 MG Tablet 150 mg PO DAILY Label Comments: atorvastatin 80 MG Tablet 80 mg PO DAILY Label Comments: duloxetine 60 MG Capsule.Dr 60 mg PO DAILY Label Comments: rivaroxaban 20 MG tablet 20 mg PO DAILY 30 Days Qty: 30 0RF diltiazem HCl 120 MG capsule,extended release 24hr 120 mg PO DAILY Qty: 30 0RF carvedilol 12.5 MG tablet 12.5 mg PO DAILY 30 Days Qty: 30 0RF Rx Instructions: Decrease to one HALF tablet twice daily Referrals Follow up/Referrals: Fernando Rick MD [Primary Care Provider] - See instructions Clinical Impressions Clinical Impression: Non-ST elevation SC (NSTEMI) Discharge ED Provider: Heri Tipton General Adult HPI General Chief complaint: Weakness Stated complaint: GENERAL WEAKNESS Time Seen by Provider: 01/30/22 18:10 Mode of Arrival: EMS Source of Information: Patient, Spouse and EMS Limitations: Physical Limitations Description of Symptoms (Recalled from ER Triage Doc. by RN): c/o general weakness and having trouble getting around. PCP sent over for further evaluation and possible placement for pt History of Present Illness HPI narrative: This is an 81-year-old male with history of dementia, hypertension, hyperlipidemia, A. fib status post watchman procedure not currently on anticoagulation presenting with acute on chronic debility. Daughter states that patient has had downhill progression since approximately 3 months ago, has gotten acutely worse over the past 3 to 4 days in terms of ambulation. He has taken care of by his , who is no longer able to take care of him. He was told to come to the ED for further evaluation for admission and placement given any positive findings. Patient denies chest pain, shortness of breath, nausea, vomiting, fevers, chills, abdominal pain, diarrhea, dysuria, hematuria, cough, or any other concerning symptoms. He has not had any neurologic findings. Related Data Home Medications Medication Instructions Recorded Confirmed atorvastatin 80 mg tablet 80 mg PO DAILY Cholesterol 09/03/17 09/03/17 bupropion HCl 150 mg tablet,12 hr 150 mg PO DAILY mood 09/03/17 09/03/17 sustained-release duloxetine 60 mg capsule,delayed 60 mg PO DAILY mood 09/03/17 09/03/17 release Previous Rx's Medication Instructions Recorded carvedilol 12.5 mg tablet 12.5 mg PO DAILY heart health 30 09/04/17 days #30 tabs diltiazem HCl 120 mg 120 mg PO DAILY #30 caps 09/04/17 capsule,extended release 24 hr rivaroxaban 20 mg tablet 20 mg PO DAILY 30 days #30 tabs 09/04/17 Allergies Allergy/AdvReac Type Severity Reaction Status Date / Time No Known Allergies Allergy Unverified 05/19/17 13:59 [facility] Social History Smoking Status: Never smoker alcohol intake: never current occupational status: retired Travel in the last 8 weeks: None household members: spouse ROS Obtained: Yes All systems reviewed & no additional complaints except as documented Physical Exam General General appearance: alert and in no apparent distress Head Head exam: atraumatic, normocephalic and normal inspection Eye Eye exam: Present normal appearance, PERRL and EOMI ENT ENT exam: Present normal exam, normal oropharynx, mucous membranes moist, TM's normal bilaterally and normal external ear exam Neck Neck exam: Present normal inspection, full ROM and trachea midline; Absent meningismus or lymphadenopathy Chest Chest inspection: Present normal inspection and symmetric chest wall rise; Absent tenderness Respiratory Respiratory exam: Present normal lung sounds bilaterally; Absent respiratory distress Cardiovascular Cardiovascular exam: Present regular rate and normal rhythm; Absent JVD Abdominal Exam Abdominal exam: Present soft and normal
[2022-01-30 20:05] LABS: T4 (Thyroxine) 10.1 ug/dl (5.53-11.0)
--- NOTE | 2022-01-30 20:08 | ECG_ITS ---
APPROVED REPORT Exam: Resting ECG HR:67 bpm ECG Measurements Heart Rate 67 AXES UT 197 P 82 QRSd 169 QRS 86 QT 443 T 41 QTc 458 Conclusion ELECTRONIC VENTRICULAR PACEMAKER ABNORMAL RHYTHM ECG UNCONFIRMED REPORT Electronically signed by : Fernando Rick MD 01/31/2022 17:09:11
[2022-01-30 20:18] LABS: Thyroid Stimulating Hormone 0.89 uIU/mL (0.465-4.68)
[2022-01-30 20:55] LABS: Coronavirus 19, PCR Detected (NotDetected)
[2022-01-30 22:25] LABS: Troponin I 0.04 ng/ml (0.00-0.034)
--- NOTE | 2022-01-30 22:27 | PC.NURSE ---
s/w pt daughter and about admission and POC. Let know of covid status and no visitors at this time. Home Meds updated. DNR form completed. Set up password as [employer]
--- NOTE | 2022-01-30 22:42 | PC.NURSE ---
gave report to Cecily LAZARO
[2022-01-30 22:45] VITALS: BP 136/82; PULSE 84; RESP 19; TEMP 37; O2SAT 97
--- NOTE | 2022-01-30 23:16 | PC.NURSE ---
PT ARRIVED TO [facility] AT THIS TIME
[2022-01-30 23:31] VITALS: BMI 21.9
[2022-01-31] VITALS (9 sets, daily range): BP systolic 126–197; BP diastolic 63–86; PULSE 63–80; RESP 16–20; TEMP 36.9–37.4; O2SAT 93–96; BMI 22.1
[2022-01-31 01:17] LABS: Troponin I 0.04 ng/ml (0.00-0.034)
[2022-01-31 06:57] LABS: Basophils # 0.1 K/mm3 (0-0.2); Basophils % 0.9 % (0.1-2.0); Eosinophils # 0.1 K/mm3 (0.0-0.4); Eosinophils % 1.2 % (0.1-12.0); Hematocrit 42.3 % (42.0-52.0); Hemoglobin 13.1 g/dL (14.1-18.0); Lymphocytes # 0.6 K/mm3 (0.7-4.5); Mean Corpuscular Hemoglobin 29.6 pg (27.0-31.2); Mean Corpuscular Volume 95.5 fl (80-94); Mean Platelet Volume 8.5 fl (7.4-10.4); Monocytes # 0.5 K/mm3 (0.1-1.0); Monocytes % 9.9 % (1.7-9.3); Neutrophils # 3.9 K/mm3 (1.8-7.8); Platelet Count 182 K/mm3 (142-424); Red Blood Count 4.42 M/mm3 (4.60-6.20); Red Cell Distribution Width 14.4 % (11.5-17.5); White Blood Count 5.1 K/mm3 (4.8-10.8)
--- NOTE | 2022-01-31 07:24 | P.CONPHA_ITS ---
[facility] Pharmacy VTE Monitoring Patient Demographics Admission date: 01/30/22 Report Date: 01/31/22 Time: 07:24 Patient Allergies No Known Allergies Allergy (Unverified 05/19/17 13:59) Height: 1.73 m Weight: 66.281 kg Current Active Problems (Updated 01/31/22 @ 01:29 by Marlen Mcghee RN) Non-ST elevation SC (NSTEMI) (Acute) VTE Risk Labs: VTE Related Lab Results Hgb 13.1 g/dL (14.1-18.0) L 01/31/22 05:40 Hct 42.3 % (42.0-52.0) 01/31/22 05:40 Plt Count 182 K/mm3 (142-424) 01/31/22 05:40 BUN 21 mg/dl (9-20) H 01/30/22 18:28 Creatinine 1.00 mg/dl (0.66-1.25) 01/30/22 18:28 Estimated Creat Clear 55 mL/min (50-200) 01/30/22 18:28 Prophylaxis VTE Prophylaxis Ordered?: Yes Types of VTE Prophylaxis: TEDS Thigh High Location of Applied Device: Bilateral Lower Extremeties
[2022-01-31 07:36] LABS: NT Pro Brain Natriuretic Pep. 1740 pg/mL (0-450)
--- NOTE | 2022-01-31 07:39 | EXP.HP ---
History of Present Illness *Admission Date: 01/30/22 *Reason for visit:: weakness *History of present illness: Mr. Paz is an 81-year-old male with history of A. fib status post watchman procedure, dementia, and HTN presenting with progressive debility and weakness.? On arrival he was noted to be hemodynamically stable, alert, oriented to person. Family brought his to the ER due to progressive weakness and acute increase in dependence making him beyond their capabilities to care for him at home. He lives with his in [facility], has become dependent upon her for all ADLs. Initial work-up with findings of minor electrolyte disturbances, detectable troponin, and inability to ambulate. Additionally his COVID pcr was found to be positive. Given his acute on chronic debility, COVID positivity, and lab abnormalities, he was admitted to medicine for monitoring, NSTEMI, nutrition and PT eval, and possible placement On exam this morning, he is pleasant, oriented to self only. Tells me he is at his home. Denies CP, MCCANN, N/V/D, SOA, or cough. Stable on RA. Eating breakfast on exam. [facility] Medical History Atrial fibrillation Hyperlipidemia Hypertension Social History Smoking Status: Never smoker alcohol intake: never current occupational status: retired Travel in the last 8 weeks: None household members: spouse Review of Systems Review of Systems Review of systems (narrative): 14 point review of systems performed, pertinent positives and negatives as per [facility] Meds Home Medications and Allergies Home Medications Medication Instructions Recorded Confirmed Type atorvastatin 80 mg tablet 80 mg PO HS Cholesterol 09/03/17 01/31/22 History aspirin 81 mg tablet 81 mg PO DAILY Heart disease 01/30/22 01/30/22 History carvedilol 12.5 mg tablet 6.25 mg PO BID heart health 01/30/22 01/30/22 History donepezil 10 mg tablet 10 mg PO DAILY memory 01/30/22 01/30/22 History fluoxetine 20 mg capsule 20 mg PO DAILY mood 01/30/22 01/30/22 History hydrochlorothiazide 12.5 mg capsule 12.5 mg PO DAILY Fluid 01/30/22 01/30/22 History lisinopril 40 mg tablet 40 mg PO DAILY High blood pressure 01/30/22 01/30/22 History memantine 10 mg tablet 10 mg PO BID memory 01/30/22 01/31/22 History quetiapine 25 mg tablet 25 mg PO BIDP PRN mood 01/30/22 01/30/22 History tramadol 50 mg tablet 50 mg PO Q6H PRN Pain 01/30/22 01/30/22 History New Prescriptions to Start Prescriptions: Allergies Allergy/AdvReac Type Severity Reaction Status Date / Time No Known Allergies Allergy Unverified 05/19/17 13:59 Exam Data for Last 24 hours Vital signs and Labs for Last 24 Hours: Temp Pulse Resp BP Pulse Ox 99.3 F 70 20 160/63 H 94 L 01/31/22 04:00 01/31/22 05:55 01/31/22 04:00 01/31/22 04:00 01/31/22 04:00 Laboratory Results - last 24 hr 01/30/22 18:28: WBC 6.4, RBC 4.56 L, Hgb 13.6 L, Hct 42.8, MCV 94.0, MCH 29.8, MCHC 31.7 L, RDW 14.2, Plt Count 189, MPV 8.0, Neut % (Auto) 81.6 H, Lymph % (Auto) 7.5 L, [place] % (Auto) 6.5, Eos % (Auto) 3.8, Baso % (Auto) 0.7, Neut # (Auto) 5.2, Lymph # (Auto) 0.5 L, [place] # (Auto) 0.4, Eos # (Auto) 0.2, Baso # (Auto) 0.0 01/30/22 18:28: Sodium 133 L, Potassium 3.8, Chloride 95 L, Carbon Dioxide 31 H, Anion Gap 10.8, BUN 21 H, Creatinine 1.00, Estimated Creat Clear 55, Estimated GFR 72, Est GFR ( Amer) 87, Glucose 112 H, Calcium 9.3, Troponin I 0.04 H 01/30/22 18:28: TSH 0.89, Thyroxine (T4) 10.1 01/30/22 19:13: SARS-CoV-2 (PCR) Detected A, Influenza A Untype (PCR) Not detected, Influenza Type B (PCR) Not detected 01/30/22 21:53: Troponin I 0.04 H 01/31/22 00:50: Troponin I 0.04 H 01/31/22 05:40: WBC 5.1, RBC 4.42 L, Hgb 13.1 L, Hct 42.3, MCV 95.5 H, MCH 29.6, MCHC 31.0 L, RDW 14.4, Plt Count 182, MPV 8.5, Neut % (Auto) 76.0, Lymph % (Auto) 12.0, [place] % (Auto) 9.9 H, Eos % (Auto) 1.2, Baso % (Auto) 0.9,
--- NOTE | 2022-01-31 07:43 | PC.NURSE ---
Pt a/o x2. Pt did not voice any c/o to staff. Bed alarm on for pt safety. Call light within reach
--- NOTE | 2022-01-31 10:04 | HMH.PHAINT1 ---
Pharmacy Intervention Comments: home medication list verified using list from [facility]
--- NOTE | 2022-01-31 10:09 | HMH.OTEV ---
OT Inpatient Evaluation Rehab OT IP Evaluation Start: 01/31/22 08:40 Freq: ONCE Status: Complete Protocol: [facility]31/22 10:01 [facility] (Rec: 01/31/22 10:09 [facility] [id number]) Rehab OT IP Assessment Subjective History Pt oriented x 2 on arrival. Pt agreeable to engage in therapy evaluation. Pt was admitted via ED on 01/30/22 due to weakness. Pt lives at home with his . Pt demonstrates increase difficulty with following commands. Pt claims he was independent with dressing and feeding. He informed therapist he does not bathe. Pt also explains he can walk, but does not use a walker. Pt depends on his for completion of all IADLs. Information provided by patient may not be trustworthy due to patient being a poor historian. The following information was copied from history and physical report: Mr. Paz is an 81-year-old male with history of A. fib status post watchman procedure , dementia presenting with debility and weakness.? On arrival, patient hemodynamically stable, alert, appropriate, oriented to person, moving all extremities spontaneously, pupils equal and reactive to light.? Includes acute on chronic debility, deconditioning, ACS, ND, pneumonia, UTI, pneumothorax, among others.? Work-up significant for nonactionable CMP.? Initial troponin 0.04.? Nonactionable CBC.? Chest x-ray without acute cardiopulmonary or airspace disease.? Given patient's history, physical exam, work-up, this most likely represents acute on
--- NOTE | 2022-01-31 11:01 | SW/DCPLANNER ---
Addendum entered by Sofia Post 02/04/22 08:44: The plan for this patient is to discharge to [facility] level of care today. Tucker olivo/ [facility] is agreeable and due to patient being COVID positive he will not require an additional COVID swab prior to discharge. Addendum entered by Sofia Post 01/31/22 13:34: This patient has been accepted to [facility] per Tucker. Tucker has stated that she can not accept patient till Thursday02/04/22. I have called and informed patient's daughter that patient has been accepted for Thursday and Dr Martin stated that patient is medically stable for discharge. Patient's daughter stated that patient can not return home until Thursday. I will discuss this case with Dr Martin. Original Note: I called and spoke with this patient's regarding discharge plans. requested that I call and speak with their daughter due to assisting with decision making. Daughter stated that they are only interested in a few facilities that would be local. I informed daughter that due to being COVID positive the only facilities that would be able accept patient is [facility] or [facility]. Daughter stated that [facility] would not be an option for placement for this patient. Tucker olivo/ [facility] Vu is currently reviewing patient information but stated they are on an admission hold but would get back with me regarding referral. Daughter expressed that an interest in [facility] in [place] but stated that patient would need to have a negative COVID swab or 10 days post COVID positive. I explained to daughter that MD stated that patient is medically stable for discharge and we would not be able to hold patient for nine days. Daughter requested that Dr Martin call her regarding patient: I have informed Dr Martin and daughter will call me back after she speaks with Dr Martin. Discharge plan is unknown at this time however [facility] is reviewing the referral.
--- NOTE | 2022-01-31 11:15 | HMH.PTEV ---
Physical Therapy Evaluation Rehab PT IP Evaluation Start: 01/31/22 08:40 Freq: ONCE Status: Active Protocol: Document 01/31/22 11:12 PHORNE (Rec: 01/31/22 11:15 PHORNE [id number]) Subjective/History History History 81 yowm adm to [facility] with weakness, dementia, and COVID+ . He reports he lives with spouse, no steps to enter the home and he was ambulating independently prior to adm. Difficult to ascertain how much of this hx reported by the pt is correct. Subjective Subjective Pt with no c/o this am. Rehab PT IP Eval Objective Appearance Patient Behavior Appropriate,Confused Patient Orientation Person Difficulty following instructions mild Speech Pattern Clear Ambulation Patient Able to Ambulate No Balance Ability to Arise Unable Sitting Balance Leans or slides in chair Standing Balance Unsteady Dynamic Sitting Balance Ability Poor Dynamic Standing Balance Ability Poor Transfers Bed Transfer Ability Maximum x 1 (75% assist) Chair Transfer Ability Maximum x 1 (75% assist) Sit to Stand Bed Transfer Ability Maximum x 1 (75% assist) Sit to Stand Chair Transfer Ability Maximum x 1 (75% assist) Rehab PT IP prob,goals,plan Problems Date of Evaluation: 01/31/22 PT IP Problems Bed Mobility,Transfers,Gait Rehab Potential Rehab Potential Fair Plan PT Intervention Plan Bed Mobility,Transfers,Gait, Therapeutic Exercise PT Plan Frequency BID Duration LOS Discharge Goals Bed Transfer Ability Moderate x 2 (50% assist) Sit to Stand Chair Transfer Ability Moderate x 2 (50% assist) Ambulation Assistive Device Rolling Walker Ambulation Distance (feet) 5 Discharge Plan PT Discharge Plan Pt is currently most approprite for rehab placement once medically stable. If her returns home he will be at significant risk for falls, injury, wounds ,and further debility. G -code Required No Eval Complexity Eval Charge Codes 95827 - Moderate Complexity PHYSICIAN CERTIFICATION: I certify the specified therapy services for Donnie Paz are required, authorized, and reviewed every 30 days.
--- NOTE | 2022-01-31 15:27 | PC.NURSE ---
2 hours visitiation approved per Fiona AHMADI
--- NOTE | 2022-01-31 17:37 | PC.NURSE ---
Recvd call from Dr. Martin for elevated BP; retaken manually - new BP 180/80 recvd v.o. to give Carvedilol 12.5 early
--- NOTE | 2022-01-31 18:21 | PC.NURSE ---
Recal v.o. from Dr. Martin to change Tramadol 50mg PO to TID scheduled. Patient's daughter spoke with Dr. Martin, patients would like to come see patient. However, daughter and son feel the mother would be too emotional to come alone. Dr. Martin gave permission for son to bring mother for a visit but not for the day.
[2022-02-01] VITALS (7 sets, daily range): BP systolic 117–141; BP diastolic 64–80; PULSE 60–66; RESP 16–18; TEMP 36.6–37.2; O2SAT 93–97; BMI 21.5
--- NOTE | 2022-02-01 04:23 | PC.NURSE ---
Pt is alert to self only. Pt has been resting in bed throughout the shift with no complaints. Pt has been incontinent of bowel and bladder this shift. Tele shows paced. O2 sat >90% on room air. Lung sounds are clear, bowel sounds active, abdomen soft and nontender. Bed alarm on and functioning, call light in reach.
--- NOTE | 2022-02-01 08:02 | EXP.ACUTE.PN ---
Subjective *Date: 02/01/22 *Time: 08:57 Interval history: Patient did well overnight, slept well per nursing report. Had a bowel movement and has voided independently. No increase in confusion or outbursts. Remained afebrile and stable on room air. Blood pressure has improved. This morning has an intermittent cough that is new. Denies shortness of breath, chest pain, nausea or vomiting. Does complain of brief cough. Medical Exam Vital signs and Labs for Last 24 Hours: Temp Pulse Resp BP Pulse Ox 97.9 F 60 16 133/80 94 L 02/01/22 07:59 02/01/22 07:59 02/01/22 07:59 02/01/22 07:59 02/01/22 07:59 I & O for Labs for Last 24 Hours: Intake & Output 01/29/22 01/30/22 01/31/22 02/01/22 23:59 23:59 23:59 23:59 Intake Total 400 / 400 Output Total 0 / 0 0 / 0 Balance 400 / 400 0 / 0 Weight 65.856 kg 66.28 kg 64.41 kg Head: atraumatic and normocephalic ENT: normal exam Neck: normal inspection Respiratory: CTA bilaterally, prolonged expiratory phase, rhonchi (that clear with cough), wheezes or crackles Cardiac: Reg Rate and Rhythm and Systolic Murmur (3/) GI: soft and tenderness Rectal (male): deferred (male): deferred Extremities: normal inspection (sarcopenia) Skin: intact, cyanosis or erythema Neuro: alert (oriented to self) Assessment and Plan *Assessment and plan (1) Coronavirus infection: Status: Acute Category: Medical Code(s): B34.2 - Coronavirus infection, unspecified (2) Non-ST elevation [place] (NSTEMI): Status: Acute Category: Medical Code(s): I21.4 - Non-ST elevation (NSTEMI) myocardial infarction (3) Paroxysmal atrial flutter: Status: Chronic Category: Medical Code(s): I48.92 - Unspecified atrial flutter (4) Dementia: Status: Chronic Qualifiers: Dementia type: unspecified type Category: Medical Code(s): F03.90 - Unspecified dementia without behavioral disturbance (5) Severe protein-calorie malnutrition: Status: Chronic Category: Medical Code(s): E43 - Unspecified severe protein-calorie malnutrition (6) Arthritis: Status: Chronic Category: Medical Code(s): M19.90 - Unspecified osteoarthritis, unspecified site Assessment and plan all Dx Assessment and Plan All Dx:: 81-year-old male with acute on chronic debility, NSTEMI, found to be COVID-positive.? Concern for progressive decline to the point that with his acute illness he is no longer able to be cared for at home.? Developed slight cough overnight. Blood pressure better controlled with adjustments to regimen. Hemodynamically stable today. Continues to require placement. - He is stable at this time on room air.? Minor electrolyte abnormalities will be monitored.? Will address nutritional needs while admitted.? Will attempt placement pending acceptance by skilled nursing. - Continue medications for memory - Continue home medications for blood pressure at increased dose - tramadol scheduled for arthritis - Doc/Senna PRN Cardiac diet. DNR Continues to require inpatient management at this time.? Given memory impairment, will allow visitation by family even in the setting of COVID positivity.? Patient at risk for worsening confusion if At all alone.
--- NOTE | 2022-02-01 18:59 | PC.NURSE ---
Patient VSS, has had family in room today and became upset with tears when they left stating I want to go home. Has been given incentive spirometer and needs reminding of how to do it. No acute distress noted, call light within reach, bed at lowest level for safety; will continue to monitor.
[2022-02-02] VITALS (9 sets, daily range): BP systolic 99–135; BP diastolic 57–72; PULSE 50–69; RESP 16–18; TEMP 36.7–37.1; O2SAT 94–96; BMI 21.3
--- NOTE | 2022-02-02 03:32 | PC.NURSE ---
Pt is alert to self and place. Pt has remained on room air, O2 sat >90%. Pt lung sounds are clear, bowel sounds active, abdomen soft and nontender. Pt has been incontinent in the brief. Pt has had no complaints through the shift, and has been resting through the night. Bed alarm on, call light in reach and functioning.
--- NOTE | 2022-02-02 07:39 | EXP.ACUTE.PN ---
Subjective *Date: 02/02/22 *Time: 08:56 Interval history: Remained afebrile overnight. Hemodynamically stable. Having bowel movements. Tolerating p.o. intake. Family came to visit him yesterday, was a good visit but he was agitated when they left as he was convinced he was going with them. Able to calm. Slept well. Denies any shortness of breath, chest pain, nausea or vomiting. Still has minimal cough on exam this morning. Medical Exam Vital signs and Labs for Last 24 Hours: Temp Pulse Resp BP Pulse Ox 98.8 F 60 16 135/72 96 02/02/22 03:57 02/02/22 04:00 02/02/22 03:57 02/02/22 03:57 02/02/22 03:57 I & O for Labs for Last 24 Hours: Intake & Output 01/30/22 01/31/22 02/01/22 02/02/22 23:59 23:59 23:59 23:59 Intake Total 400 / 400 120 / 120 Output Total 0 / 0 0 / 0 0 / 0 Balance 400 / 400 120 / 120 0 / 0 Weight 65.856 kg 66.28 kg 64.41 kg 63.957 kg Head: atraumatic and normocephalic ENT: normal exam Respiratory: respiratory distress, rhonchi, wheezes or crackles Cardiac: Reg Rate and Rhythm and Systolic Murmur GI: soft and tenderness Rectal (male): deferred (male): deferred Extremities: normal inspection (sarcopenia) Skin: intact Neuro: alert (Oriented x2 (person and place)) Assessment and Plan *Assessment and plan (1) Coronavirus infection: Status: Acute Category: Medical Code(s): B34.2 - Coronavirus infection, unspecified (2) Severe protein-calorie malnutrition: Status: Chronic Category: Medical Code(s): E43 - Unspecified severe protein-calorie malnutrition (3) Dementia: Status: Chronic Qualifiers: Dementia type: unspecified type Category: Medical Code(s): F03.90 - Unspecified dementia without behavioral disturbance (4) Arthritis: Status: Chronic Category: Medical Code(s): M19.90 - Unspecified osteoarthritis, unspecified site (5) Non-ST elevation [place] (NSTEMI): Status: Acute Category: Medical Code(s): I21.4 - Non-ST elevation (NSTEMI) myocardial infarction (6) Hyponatremia: Status: Acute Category: Medical Code(s): E87.1 - Hypo-osmolality and hyponatremia (7) Hypomagnesemia: Status: Acute Category: Medical Code(s): E83.42 - Hypomagnesemia Assessment and plan all Dx Assessment and Plan All Dx:: 81-year-old male with acute on chronic debility, NSTEMI, found to be COVID-positive.? Concern for progressive decline to the point that with his acute illness he is no longer able to be cared for at home.? Asa stable at this time. Cough persists but is no worse. Blood pressure better controlled with adjustments to regimen.? Hemodynamically stable today.? Continues to require placement. - He is stable at this time on room air.? Minor electrolyte abnormalities will be monitored.? Will address nutritional needs while admitted.? Will attempt placement pending [facility] by [facility]. - Continue medications for memory - Continue home medications for blood pressure at increased dose - replacing sodium and magnesium today via IV fluids. - tramadol scheduled for arthritis - Doc/Senna PRN Cardiac diet. DNR Continues to require inpatient management at this time.? Given memory impairment, will allow visitation by family even in the setting of COVID positivity.? Patient at risk for worsening confusion if all alone.
[2022-02-02 08:26] LABS: Basophils # 0.1 K/mm3 (0-0.2); Basophils % 1.3 % (0.1-2.0); Eosinophils # 0.1 K/mm3 (0.0-0.4); Eosinophils % 1.1 % (0.1-12.0); Hematocrit 39.4 % (42.0-52.0); Hemoglobin 12.7 g/dL (14.1-18.0); Lymphocytes # 1.4 K/mm3 (0.7-4.5); Mean Corpuscular HGB Conc 32.1 g/dL (31.8-35.4); Mean Corpuscular Hemoglobin 29.8 pg (27.0-31.2); Mean Corpuscular Volume 92.8 fl (80-94); Monocytes # 0.4 K/mm3 (0.1-1.0); Monocytes % 6.6 % (1.7-9.3); Neutrophils # 3.7 K/mm3 (1.8-7.8); Neutrophils % 66.1 % (37.0-80.0); Platelet Count 169 K/mm3 (142-424); Red Blood Count 4.24 M/mm3 (4.60-6.20); Red Cell Distribution Width 14.2 % (11.5-17.5); White Blood Count 5.6 K/mm3 (4.8-10.8)
[2022-02-02 08:39] LABS: Alanine Aminotransferase 21 U/L (12-78); Albumin Level 3.2 g/dl (3.5-5.0); Albumin/Globulin Ratio 1.1 (1.1-1.8); Alkaline Phosphatase 99 U/L (38-126); Anion Gap 9.2 mEq/L (5-15); Aspartate Amino Transferase 48 U/L (17-59); Bilirubin,Total 0.2 mg/dl (0.2-1.3); Blood Urea Nitrogen 16 mg/dl (9-20); Calcium 8.6 mg/dl (8.4-10.2); Carbon Dioxide 32 mmol/L (22.0-30.0); Chloride 92 mmol/L (98-107); Creatinine Clearance Estimated 52 mL/min (50-200); Estimated Glomerular Filt Rate 129 ml/min (>60); GFR (African American) 156 ML/MIN (>60); Globulin 2.8 g/dL (1.3-3.2); Glucose 106 mg/dl (74-100); Magnesium 1.6 mg/dl (1.6-2.3); Potassium 3.2 mmoL/L (3.5-5.1); Sodium 130 mmol/L (136-145)
--- NOTE | 2022-02-02 19:17 | INFXCTL.NOTE ---
Patient VSS, tolerated bath and physical therapy today. Changed pain medication from Tramadol 50mg q 6 TID to [place] 5/325mg q 6 scheduled per v.o. from Dr. Martin. No family visits today, patient's spirits up today. Patient's daughter, Josselyn, called to check on patient stating that the family has discussed and would like to exercise all measures for the patient to be comfortable and is requesting a change in pain medication. Patient's family also states that patient has an appointment with Dr. Mars this coming to have steroid injections and was told that through mutual contacts family felt that Dr. Mars or his [employer]ER would be attempting to contact Dr. Martin or Dr. Rick to discuss possibility of having steroid injection while an inpatient. Patient has not been eating but does like chocolate ice cream; patient will eat if taken to him but if asks if he wants anything he will mostly like refuse it. Patient shows no s/s of acute distress noted, call light within reach, bed at lowest level for safety; will continue to monitor.
[2022-02-03] VITALS (8 sets, daily range): BP systolic 92–139; BP diastolic 52–73; PULSE 57–70; RESP 16–22; TEMP 36.6–36.7; O2SAT 94–96; BMI 21.5
--- NOTE | 2022-02-03 06:56 | PC.NURSE ---
No acute changes. Pt tolerating RA well with sats >90%. Pt refused scheduled [place] stating he did not have any pain. No c/o voiced to staff. Call light within reach.
--- NOTE | 2022-02-03 08:45 | EXP.ACUTE.PN ---
Subjective *Date: 02/03/22 *Time: 11:05 Interval history: No acute events overnight. Continues to have cough on exam this morning. Denies chest pain, shortness of breath, nausea or vomiting. Tolerating at least 50% of his trays. Having bowel movements and voiding independently. Wearing pull-up Medical Exam Vital signs and Labs for Last 24 Hours: Temp Pulse Resp BP Pulse Ox 97.8 F 57 L 22 129/52 L 95 02/03/22 08:00 02/03/22 08:00 02/03/22 08:00 02/03/22 08:00 02/03/22 08:00 Laboratory Results - last 24 hr 02/02/22 07:40: Sodium 130 L, Potassium 3.2 L, Chloride 92 L, Carbon Dioxide 32 H, Anion Gap 9.2, BUN 16, Creatinine 0.60 L D, Estimated Creat Clear 52, Estimated GFR 129, Est GFR ( Amer) 156 D, Glucose 106 H, Calcium 8.6, Magnesium 1.6, Total Bilirubin 0.2, AST 48, ALT 21, Alkaline Phosphatase 99, Total Protein 6.0 L, Albumin 3.2 L, Globulin 2.8, Albumin/Globulin Ratio 1.1 I & O for Labs for Last 24 Hours: Intake & Output 01/31/22 02/01/22 02/02/22 02/03/22 23:59 23:59 23:59 23:59 Intake Total 400 / 400 120 / 120 1190 / 1190 Output Total 0 / 0 0 / 0 0 / 0 0 / 0 Balance 400 / 400 120 / 120 1190 / 1190 0 / 0 Weight 66.28 kg 64.41 kg 63.957 kg 64.455 kg Head: atraumatic and normocephalic Eyes: other ENT: normal exam Respiratory: CTA bilaterally, prolonged expiratory phase or crackles Cardiac: Irregularly Regular and Systolic Murmur GI: soft, distention or tenderness Rectal (male): deferred (male): deferred Extremities: normal inspection Comment:: sarcopenia, laying in bed with legs contracted at hip. Skin: intact, cyanosis or erythema Neuro: alert (oriented to person and place) Assessment and Plan *Assessment and plan (1) Coronavirus infection: Status: Acute Category: Medical Code(s): B34.2 - Coronavirus infection, unspecified (2) Hyponatremia: Status: Acute Category: Medical Code(s): E87.1 - Hypo-osmolality and hyponatremia (3) Dementia: Status: Chronic Qualifiers: Dementia behavioral disturbance: without behavioral disturbance Dementia type: unspecified type Qualified Code(s): F03.90 - Unspecified dementia without behavioral disturbance Category: Medical Code(s): F03.90 - Unspecified dementia without behavioral disturbance (4) Severe protein-calorie malnutrition: Status: Chronic Category: Medical Code(s): E43 - Unspecified severe protein-calorie malnutrition (5) Paroxysmal atrial flutter: Status: Chronic Category: Medical Code(s): I48.92 - Unspecified atrial flutter (6) Non-ST elevation [place] (NSTEMI): Status: Acute Category: Medical Code(s): I21.4 - Non-ST elevation (NSTEMI) myocardial infarction Assessment and plan all Dx Assessment and Plan All Dx:: 81-year-old male with acute on chronic debility, NSTEMI, found to be COVID-positive.? Concern for progressive decline to the point that with his acute illness he is no longer able to be cared for at home.? Hemodynamics stable at this time.? Cough persists but is no worse.? Blood pressure controlled with adjustments to regimen. Continues to require placement. - He is stable at this time on room air.? Minor electrolyte abnormalities corrected yesterday. Repeat labs in morning. - Continue medications for memory - Continue home medications for blood pressure at increased dose. - increased pain regimen to [place], scheduled - Doc/Senna PRN Cardiac diet. DNR Continues to require inpatient management at this time.? Given memory impairment, will allow visitation by family even in the setting of COVID positivity.? Patient at risk for worsening confusion if all alone.
--- NOTE | 2022-02-03 11:30 | DIET.NUTRFU ---
Reviewing meal intake, refusing meals. Ensure is alredya in place. Nursing noted he does well with chocolate ice cream. Added to lunch and dinner trays
--- NOTE | 2022-02-03 18:00 | PC.NURSE ---
Patient VSS, A&O x 1 to self. Patient shows s/s of pain >7 on face scale with grimacing as he is telling nurse his pain is Its ok. Pain medication is scheduled per spouse request. No acute distress noted, call light within reach, bed at lowest level for safety; will continue to monitor.
[2022-02-04] VITALS: BP 134/69; PULSE 60; PULSE 61; RESP 16; TEMP 36.9; O2SAT 97
[2022-02-04 04:00] VITALS: BP 110/58; PULSE 79; PULSE 80; RESP 16; TEMP 36.8; O2SAT 97
--- NOTE | 2022-02-04 04:58 | PC.NURSE ---
no acute change since previous assessment. pt has rested well throughout the shift with no complaints of pain. pt has been turned Q2hr. CB in reach.
[2022-02-04 07:01] LABS: Basophils # 0.1 K/mm3 (0-0.2); Basophils % 1.8 % (0.1-2.0); Eosinophils # 0.5 K/mm3 (0.0-0.4); Eosinophils % 7.9 % (0.1-12.0); Hematocrit 43.6 % (42.0-52.0); Hemoglobin 13.8 g/dL (14.1-18.0); Lymphocytes # 2.2 K/mm3 (0.7-4.5); Lymphocytes % 31.3 % (10-50); Mean Corpuscular HGB Conc 31.7 g/dL (31.8-35.4); Mean Corpuscular Hemoglobin 29.5 pg (27.0-31.2); Mean Corpuscular Volume 93.1 fl (80-94); Mean Platelet Volume 8.2 fl (7.4-10.4); Monocytes # 0.4 K/mm3 (0.1-1.0); Monocytes % 5.2 % (1.7-9.3); Neutrophils # 3.7 K/mm3 (1.8-7.8); Neutrophils % 53.8 % (37.0-80.0); Platelet Count 191 K/mm3 (142-424); Red Blood Count 4.68 M/mm3 (4.60-6.20); Red Cell Distribution Width 13.9 % (11.5-17.5); White Blood Count 6.9 K/mm3 (4.8-10.8)
[2022-02-04 07:13] LABS: Alanine Aminotransferase 22 U/L (12-78); Albumin/Globulin Ratio 1.1 (1.1-1.8); Alkaline Phosphatase 93 U/L (38-126); Anion Gap 7.3 mEq/L (5-15); Aspartate Amino Transferase 40 U/L (17-59); Bilirubin,Total 0.1 mg/dl (0.2-1.3); Blood Urea Nitrogen 21 mg/dl (9-20); Calcium 8.6 mg/dl (8.4-10.2); Carbon Dioxide 33 mmol/L (22.0-30.0); Chloride 94 mmol/L (98-107); Creatinine Clearance Estimated 52 mL/min (50-200); Estimated Glomerular Filt Rate 93 ml/min (>60); GFR (African American) 112 ML/MIN (>60); Globulin 2.8 g/dL (1.3-3.2); Glucose 98 mg/dl (74-100); Potassium 3.3 mmoL/L (3.5-5.1); Sodium 131 mmol/L (136-145); Total Protein,Serum 5.8 g/dl (6.3-8.2)
--- NOTE | 2022-02-04 07:34 | EXP.DC.SUM ---
General Admission date:: 01/30/22 Discharge date: 02/04/22 HPI HPI HPI: Mr. Paz is an 81-year-old male with history of A. fib status post watchman procedure, dementia, and HTN presenting with progressive debility and weakness.? On arrival he was noted to be hemodynamically stable, alert, oriented to person. Family brought his to the ER due to progressive weakness and acute increase in dependence making him beyond their capabilities to care for him at home. He lives with his in [facility], has become dependent upon her for all ADLs. Initial work-up with findings of minor electrolyte disturbances, detectable troponin, and inability to ambulate. Additionally his COVID pcr was found to be positive. Given his acute on chronic debility, COVID positivity, and lab abnormalities, he was admitted to medicine for monitoring, NSTEMI, nutrition and PT eval, and possible placement On exam this morning, he is pleasant, oriented to self only. Tells me he is at his home. Denies CP, MCCANN, N/V/D, SOA, or cough. Stable on RA. Eating breakfast on exam. Hospital Course Hospital Course Hospital Course: 81-year-old male with acute on chronic debility, NSTEMI, found to be COVID-positive.? Concern for progressive decline to the point that with his acute illness he is no longer able to be cared for at home.? Hemodynamics stable through hospitalization. Has had a mild cough through admission, improving however. Blood pressure has remained stable on current medications. At this time he is stable for discharge to the skilled nursing. We will continue his medications for dementia, hypertension, pain. Continue with scheduled [place] for arthritis pain. Also on as needed stool softener. Cardiac diet. DNR Exam Data for Last 24 hours Vital signs and Labs for Last 24 Hours: Temp Pulse Resp BP Pulse Ox 98.2 F 79 16 110/58 L 97 02/04/22 04:00 02/04/22 04:00 02/04/22 04:00 02/04/22 04:00 02/04/22 04:00 Laboratory Results - last 24 hr 02/04/22 05:55: WBC 6.9, RBC 4.68, Hgb 13.8 L, Hct 43.6, MCV 93.1, MCH 29.5, MCHC 31.7 L, RDW 13.9, Plt Count 191, MPV 8.2, Neut % (Auto) 53.8, Lymph % (Auto) 31.3, [place] % (Auto) 5.2, Eos % (Auto) 7.9, Baso % (Auto) 1.8, Neut # (Auto) 3.7, Lymph # (Auto) 2.2, [place] # (Auto) 0.4, Eos # (Auto) 0.5 H, Baso # (Auto) 0.1 02/04/22 05:55: Sodium 131 L, Potassium 3.3 L, Chloride 94 L, Carbon Dioxide 33 H, Anion Gap 7.3, BUN 21 H D, Creatinine 0.80 D, Estimated Creat Clear 52, Estimated GFR 93, Est GFR ( Amer) 112 D, Glucose 98, Calcium 8.6, Total Bilirubin 0.1 L, AST 40, ALT 22, Alkaline Phosphatase 93, Total Protein 5.8 L, Albumin 3.0 L, Globulin 2.8, Albumin/Globulin Ratio 1.1 I & O for Last 24 hours: Intake & Output 02/01/22 02/02/22 02/03/22 02/04/22 23:59 23:59 23:59 23:59 Intake Total 120 / 120 1190 / 1190 Output Total 0 / 0 0 / 0 150 / 150 0 / 0 Balance 120 / 120 1190 / 1190 -150 / -150 0 / 0 Weight 64.41 kg 63.957 kg 64.455 kg Constitutional Constitutional: no acute distress *Routine HEENT Exam Head: Present normocephalic Eye: Present EOMI and PERRL ENT: Present mucous membranes moist *Routine Neck Exam Neck: Present supple; Absent lymphadenopathy *Routine Respiratory Exam Respiratory: Present CTA bilaterally; Absent wheezes or crackles *Routine Cardiovascular Exam Cardiovascular: Present RRR *Routine Abdominal Exam Abdominal: Present soft and normoactive bowel sounds; Absent tenderness *Routine Rectal Exam Patient deferred: visual exam *Routine Exam Patient deferred: penile exam *Routine Extremities Exam Extremities: Absent cyanosis, clubbing or edema Comments: contracted at hips, painful with movement *Routine Skin Exam Skin: Present warm; Absent rash *Routine Neurological Exam Neurological: Present alert Comments: oriented to person and place Results Data Completed and Pending Labs on day of discharge: Labs from last 24 hours 02/04/22 02/04/22 05:55 05:55
[2022-02-04 08:00] VITALS: BP 123/60; PULSE 60; PULSE 70; RESP 16; TEMP 36.6; O2SAT 94
--- NOTE | 2022-02-04 10:28 | EXP.PAIN.SOA ---
[facility] Pain Management SOAP Note Subjective:: Patient is a pleasant 81-year-old male that presents today for consult. Patient is currently admitted as a non-STEMI and COVID-positive patient. He does have a history of dementia per his daughter. The daughter states he has not had any new trauma or injury however he has had issues with his bilateral hips for years and this problem has worsened over time. She states that he continuously has pain in his bilateral hips with any movement including jarring his hips during car rides or with ambulation. She also stated that he would occasionally complain of groin pain. She states he has not been able to ambulate as well over the last couple of weeks and seems like his range of motion as well as strength in his legs has decreased. Patient was able to tell me he has pain along the back of his buttocks bilaterally. Dr. Rick had ordered x-rays of his bilateral hips in the past that showed degenerative joint disease with no acute trauma or fracture.Patient's daughter did state that his troponin never increased past the initial result. Patient does have a cough however does not present with any other COVID symptoms at this time. Patient is scheduled to be discharged to a half-way facility today. Patient is currently managed [place] 5 mg 3 times daily written by Dr. Martin. He had previously been taking tramadol 50 mg as needed at home. Per the patient's daughter he was not having any side effects of this medication. She did state that it did not seem to be helping as well during the most recent weeks. Review of Systems: General: No recent weight changes, no fever, no sleep disturbances Respiratory: No cough, no shortness of air, no recurring pulmonary infections Cardiovascular/peripheral vascular: No chest pain, no palpitations, no edema, no shortness of breath Gastrointestinal: No new onset incontinence, normal bowel movements reported Genitourinary: No new onset incontinence Musculoskeletal: Bilateral hip pain, bilateral buttocks pain Psychiatric: [Normal mood/affect] Neurological: [Denies weakness in extremities], [denies balance issues] Objective:: Physical Exam: General: Alert and oriented x3, no acute distress, pleasant and cooperative Lungs: Respirations even and unlabored, symmetrical chest expansion Eyes: PERRL Musculoskeletal: Flexion and extension of lumbar [spine] somewhat guarded secondary to pain, [antalgic gait noted] Neurological: Speech clear, no gross sensory deficit FINDINGS: RIGHT HIP? Two views of the right hip with an AP pelvis demonstrate no acute fracture or dislocation.? There are severe degenerative changes of both hips.? The visualized bony structures are well aligned.? There are postoperative changes in the lower pelvis. IMPRESSION: Severe degenerative change with no acute bony abnormality. Reviewed, Interpreted and Dictated by Donnie Abdi III, MD Transcribed by Jade Avalos Authenticated and [facility] FINDINGS: LUMBAR SPINE? 5 views of the lumbar spine were obtained.? There is no evidence of fracture or dislocation.? There is mild rightward curvature.? The vertebral alignment is normal.? There is moderate degenerative change with facet arthropathy in the lower lumbar spine.? There are mild vascular calcifications. IMPRESSION: Moderate degenerative change with no acute bony abnormality. Reviewed, Interpreted and Dictated by Donnie Abdi III, MD Transcribed by Jade Avalos Authenticated and ERN FINDINGS: SACROILIAC JOINTS? Three views demonstrate no acute fracture or dislocation.? There are mild degenerative changes.? The sacral arches are intact.? No soft tissue abnormality is seen. IMPRESSION: Mild degenerative change of the SI joints with no acute bony abnormality. Reviewed, Inter
--- NOTE | 2022-02-04 11:43 | PC.NURSE ---
discharge delayed to finish fluids ordered; family with patient now to help keep arm straight as patient is A&O to self only.
--- NOTE | 2022-02-04 12:13 | PC.NURSE ---
Patient VSS, A&O x 1 self, report call to [facility] spoke with Donna. [facility] [employer] notified as well. Patient had BMx1 this AM. No skin redness or breakdown noted during AM assessment by this nurse with family at bedside.
== END 2022-02-04 12:34 ==
LOC: ER 20:35 → 2ND 21:24
PROVIDERS: Admitting Provider Internal Medicine Adolescent Medicine; Emergency Provider Emergency Medicine; PCP Internal Medicine Adolescent Medicine; Visit Provider Internal Medicine Adolescent Medicine
DX: I21.4 Non-ST elevation (NSTEMI) myocardial infarction (principal); U07.1 COVID-19; I10 Essential (primary) hypertension; Z79.899 Other long term (current) drug therapy; I48.91 Unspecified atrial fibrillation; E43 Unspecified severe protein-calorie malnutrition; Z68.21 Body mass index [BMI] 21.0-21.9, adult; F03.90 Unspecified dementia, unspecified severity, without behavioral disturbance, psychotic disturbance, mood disturbance, and anxiety; E87.1 Hypo-osmolality and hyponatremia; M16.0 Bilateral primary osteoarthritis of hip
CPT/HCPCS: G0378; 36415; 71045; 80048; 80053; 83735; 83880; 84436; 84443; 84484; 85025; 93005; 97110; 97162; 97166; 97530; 99285; C9803; J3475; U0003; U0005

== ENCOUNTER 2022-02-07 12:23 | Day surgery (SDC) | payer MEDICARE, OTHER, SELFPAY ==
[2022-02-07 12:38] VITALS: BP 107/52; BP 99/46; PULSE 60; PULSE 63; RESP 18; RESP 20; TEMP 36.8; O2SAT 92; O2SAT 93; BMI 19.3
[2022-02-07 12:42] VITALS: BP 129/61; PULSE 65; RESP 18; O2SAT 96
[2022-02-07 12:51] VITALS: BP 129/61; PULSE 61; RESP 18; O2SAT 95
--- NOTE | 2022-02-07 14:20 | P.PCN_ITS ---
Procedure Date: 02/07/22 Time: 14:20 Anesthesiologist:: Efe Mars MD Complications:: None Pre-procedure Diagnosis:: Bilateral hip pain with degenerative osteoarthritis Post-procedure Diagnosis:: Same Indications for Procedure:: Patient is a pleasant 81-year-old white male who we have been treating for bilateral hip pain. We have talked to the family and he initially was supposed to see us in clinic however he was admitted to the hospital with COVID and a non-STEMI. We are planning on bilateral intra-articular injection of the hips today. We will also place him on prednisone 20 mg twice a day for 5 days to help with this acute exacerbation of pain symptoms. Procedure Details:: Informed consent was obtained risk and benefits of the procedure were explained to the patient. Patient was taken the procedure room. Both hips were prepped using ChloraPrep. A 22-gauge spinal needle was inserted and advanced into the hip joint first on the left and then on the right. Needle placement confirmed with dye. We then injected each hip with bupivacaine 0.25% 10 mL and Depo- Medrol 40 mg into each hip. We is a total of 80 mg Depo-Medrol for both hips. Patient tolerated procedure well with no complications Plan and Disposition:: We will follow-up with this patient in 1 month. Will reevaluate symptoms at that time. We will start him on prednisone 20 mg twice a day for 5 days to help him with his pain symptoms.
== END 2022-02-07 13:09 | disposition home or self-care (01) ==
PROVIDERS: PCP Internal Medicine Adolescent Medicine; Visit Provider Anesthesiology
DX: M16.0 Bilateral primary osteoarthritis of hip (principal)
CPT/HCPCS: 20610; J1030; Q9966

== ENCOUNTER 2024-01-30 14:05 | Observation (INO) | payer MEDICARE, OTHER, SELFPAY ==
[2024-01-30] VITALS (14 sets, daily range): BP systolic 76–137; BP diastolic 40–103; PULSE 58–65; RESP 14–20; TEMP 36.4–37.1; O2SAT 96–100; BMI 19.6; BMI 20.8
--- NOTE | 2024-01-30 14:07 | CT_ITS ---
PROCEDURE INFORMATION: Exam: CT Head Without Contrast Exam date and time: 01/30/2024 2:41 PM Age: 83 years old Clinical indication: Altered mental status/memory loss; Additional info: AMS, hypotensive TECHNIQUE: Imaging protocol: Computed tomography of the head without contrast. Radiation optimization: All CT scans at this facility use at least one of these dose optimization techniques: automated exposure control; mA and/or kV adjustment per patient size (includes targeted exams where dose is matched to clinical indication); or iterative reconstruction. COMPARISON: No relevant prior studies available. FINDINGS: Brain: Central and cortical brain atrophy evident, appropriate for patient age. 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 No acute intracranial hemorrhage. 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 Cerebral ventricles: No ventriculomegaly. Paranasal sinuses: Visualized sinuses are unremarkable. No fluid levels. Mastoid air cells: Visualized mastoid air cells are well aerated. Bones: Unremarkable. No acute fracture. Soft tissues: Unremarkable. IMPRESSION: No acute intracranial abnormality.
--- NOTE | 2024-01-30 14:07 | XR_ITS ---
PROCEDURE INFORMATION: Exam: XR Chest Exam date and time: 01/30/2024 2:11 PM Age: 83 years old Clinical indication: Other: AMS; Additional info: AMS, hypotensive TECHNIQUE: Imaging protocol: Radiologic exam of the chest. Views: 1 view. COMPARISON: CR XR CHEST PORTABLE 01/30/2022 7:05 PM FINDINGS: Tubes, catheters and devices: Pacer leads stable. Lungs: Low lung volumes. No focal consolidation. Stable prominence of the right hilum. Pleural spaces: Unremarkable. No pleural effusion. No pneumothorax. Heart/Mediastinum: Unremarkable. No cardiomegaly. Bones/joints: Unremarkable. IMPRESSION: No acute findings.
--- NOTE | 2024-01-30 14:10 | ED_ITS ---
Discharge Plan Disposition Patient Disposition: Admitted Condition: Fair Prescriptions Prescriptions: No Action atorvastatin 80 MG tablet 80 mg PO HS Patient Comments: carvedilol 12.5 mg tablet 12.5 mg PO BID hydrocodone-acetaminophen 5-325 mg tablet 1 tab PO TID sennosides-docusate sodium [Stool Softener-Stimulant Laxat] 8.6-50 mg tablet 1 tab PO HS hydrochlorothiazide 25 mg tablet 25 mg PO DAILY quetiapine 25 mg tablet 25 mg PO BIDP PRN (Reason: mood) Patient Comments: pt takes usually just in AM donepezil 10 mg tablet 10 mg PO DAILY lisinopril 40 mg tablet 40 mg PO DAILY fluoxetine 20 mg capsule 20 mg PO DAILY memantine 10 mg tablet 10 mg PO BID aspirin 81 mg Tablet 81 mg PO DAILY Referrals Follow up/Referrals: Fernando Rick MD [Primary Care Provider] - See instructions Clinical Impressions Clinical Impression: Shock, COVID-19, Lethargy, ADDISON (acute kidney injury) Print Language Print Language: Indonesian Discharge ED Provider: Sivan Nova General Adult HPI General Chief complaint: Weakness Stated complaint: LOW BP Time Seen by Provider: 01/30/24 14:07 History of Present Illness HPI narrative: This patient is an 83-year-old male with a history of dementia, hypertension, hyperlipidemia, and atrial fibrillation presenting to the emergency department for evaluation with concern for low blood pressure and altered mental status in the setting of recent COVID-19 diagnosis. According to EMS, they were called to the facility because the patient had low blood pressure on vital sign check. He also has been slightly lethargic since receiving oxycodone today. EMS noted that when they first got to the patient, he had a systolic of 50. They gave him a bolus of IV fluids, and his pressure improved to systolic of 90. They note that he also initially was very lethargic but has slightly become more responsive. They also note that he had a low temperature and low oxygen, so they bumped him from 2 L nasal cannula, which they report he is always on, to 4 L nasal cannula. he is alert and oriented to person, but not really place or time, which they state is his baseline. They do note that he is a DNR. Patient does not contribute to history given baseline dementia. He does arouse to voice and will say his name and states that he feels awful. Related Data Home Medications ?Medication ?Instructions ?Recorded ?Confirmed atorvastatin 80 mg tablet 80 mg PO HS Cholesterol 09/03/17 02/07/22 aspirin 81 mg tablet 81 mg PO DAILY Heart disease 01/30/22 02/07/22 donepezil 10 mg tablet 10 mg PO DAILY memory 01/30/22 02/07/22 fluoxetine 20 mg capsule 20 mg PO DAILY mood 01/30/22 02/07/22 lisinopril 40 mg tablet 40 mg PO DAILY High blood pressure 01/30/22 02/07/22 memantine 10 mg tablet 10 mg PO BID memory 01/30/22 02/07/22 quetiapine 25 mg tablet 25 mg PO BIDP PRN mood 01/30/22 02/07/22 carvedilol 12.5 mg tablet 12.5 mg PO BID High blood pressure 02/07/22 02/07/22 hydrochlorothiazide 25 mg tablet 25 mg PO DAILY High blood pressure 02/07/22 02/07/22 hydrocodone 5 mg-acetaminophen 325 1 tab PO TID Pain 02/07/22 02/07/22 mg tablet sennosides 8.6 mg-docusate sodium 1 tab PO HS constipation 02/07/22 02/07/22 50 mg tablet (Stool Softener-Stimulant Laxative) Allergies Allergy/AdvReac Type Severity Reaction Status Date / Time No Known Allergies Allergy Verified 01/30/24 14:31 [facility] Disclaimer: The information contained in this section may have been updated after the patient was seen, as this information can be updated by other users. Medical History Hyperlipidemia Hypertension Atrial fibrillation Family History Other No significant family history Social History Smoking Status: Unknown if ever smoked alcohol intake: never current occupational status: retired Travel in the last 8 weeks: None household members: spouse ROS Obtained: Yes All systems reviewed & no additional complaints except as documented Physical Exam General General appearance: lethargic Comment: Ill-appearing Head Head exam: atraumatic and normocephalic Eye Eye exam: Present normal appearance, PERRL and EOMI ENT ENT exam: Present mucous membranes dry and normal external ear exam Neck Neck exam: Present normal inspection, full ROM and trachea midline; Absent tenderness Chest Chest inspection: Present normal inspection and symmetric chest wall rise; Absent tenderness Respiratory Respiratory exam: Present other (Coarse bilateral rhonchi with a wet, harsh cough); Absent respiratory distress, stridor or accessory muscle use Cardiovascular Cardiovascular exam: Present regular rate, normal rhythm and Pacemaker w/paced rhythm Abdominal Exam Abdominal exam: Present soft; Absent distention, tenderness or guarding Extremities Exam Extremities exam: Present normal inspection, full ROM and normal capillary refill; Absent tenderness or edema Back Exam Back exam: Present normal inspection and full ROM; Absent tenderness Neurological Exam Neurological exam: Absent alert or oriented X3 Expanded Neurological Exam Coma scale eye opening: To voice Coma scale motor response: Obeys commands Coma scale verbal response: Confused Coma scale total: 13 Comment: Somnolent but arouses to voice. GCS 13. No obvious focal neurologic deficits, but overall generally weak Skin Skin exam: Present warm, dry and pallor Medical Decision Making Medical Records Medical records reviewed: Yes I reviewed the patient's medical records. Joselo Inquiry Pt receiving controlled substance: No Vital Signs: 01/30/24 14:16 01/30/24 14:30 01/30/24 14:34 Temperature 98.1 F Temperature Source Rectal Pulse Rate 60 Pulse Rate [Right] 58 L Respiratory Rate 14 Blood Pressure 76/40 L Blood Pressure [Right Arm] 81/46 L Blood Pressure Mean 56 Blood Pressure Mean [Right Arm] 57 Blood Pressure Source [Right Arm] Automatic Cuff Blood Pressure Position [Right Arm] Sitting 02 Sat by Pulse Oximetry 96 98 96 Oxygen Delivery Method Nasal Cannula Nasal Cannula Nasal Cannula Oxygen Flow Rate (LPM) 2 2 2 01/30/24 14:58 01/30/24 15:00 01/30/24 15:03 Temperature Temperature Source Pulse Rate 62 60 65 Pulse Rate [Right] Respiratory Rate Blood Pressure 92/49 L 100/52 L 111/52 L Blood Pressure [Right Arm] Blood Pressure Mean 58 Blood Pressure Mean [Right Arm] Blood Pressure Source [Right Arm] Blood Pressure Position [Right Arm] 02 Sat by Pulse Oximetry 99 98 96 Oxygen Delivery Method Nasal Cannula Nasal Cannula Nasal Cannula Oxygen Flow Rate (LPM) 2 2 01/30/24 15:16 Temperature Temperature Source Pulse Rate 61 Pulse Rate [Right] Respiratory Rate Blood Pressure 96/51 L Blood Pressure [Right Arm] Blood Pressure Mean Blood Pressure Mean [Right Arm] Blood Pressure Source [Right Arm] Blood Pressure Position [Right Arm] 02 Sat by Pulse Oximetry 98 Oxygen Delivery Method Nasal Cannula Oxygen Flow Rate (LPM) Lab Data Lab results reviewed: Yes I reviewed the patient's lab results. Lab Results 01/30/24 14:07: VBG pH 7.42 H, VBG pCO2 40.7, VBG pO2 75.3 H, VBG HCO3 25.7, VBG Total CO2 27.0, VBG O2 Saturation 95.4 H, VBG Base Excess 1.3, VBG Lactic Acid 2.0 01/30/24 14:12: WBC 7.2, RBC 3.94 L, Hgb 12.3 L, Hct 38.7 L, MCV 98.2 H, MCH 31.2, MCHC 31.8, RDW 14.1, Plt Count 179, MPV 8.5, Neut % (Auto) 63.6, Lymph % (Auto) 26.0, Storey % (Auto) 8.0, Eos % (Auto) 1.6, Baso % (Auto) 0.7, Neut # (Auto) 4.6, Lymph # (Auto) 1.9, Storey # (Auto) 0.6, Eos # (Auto) 0.1, Baso # (Auto) 0.1, PT 10.9, INR 0.97, APTT 26.6, Sodium 135 L, Potassium 4.2, Chloride 105, Carbon Dioxide 29, Anion Gap 5.2, BUN 32 H, Creatinine 1.30 H, Estimated Creat Clear 38, Estimated GFR 53 L, Est GFR ( Amer) 64, Glucose 116 H, Lactate 1.5, Calcium 8.5, Magnesium 2.0, Total Bilirubin 0.5, AST 26, ALT 19, Alkaline Phosphatase 44, Troponin I 0.02, C-Reactive Protein 127.2 H, NT-Pro-B Natriuret Pep 2760 H, Total Protein 6.0 L, Albumin 3.1 L, Globulin 2.9, Albumin/Globulin Ratio 1.1, Procalcitonin 0.574, TSH 0.59, Thyroxine (T4) 6.0 01/30/24 14:12 01/30/24 14:12 Orders (Tests/Meds): ED MEDICATIONS Generic Name Dose Route Start Last Admin Trade Name Frejohn PRN Reason Stop Dose Admin Lactated Ringer's 1,800 mls @ 900 mls/hr 01/30/24 14:15 01/30/24 14:31 Lactated Ringer's 1000 Ml Bag IV 01/30/24 16:14 900 mls/hr .Q2H ONE Administration Piperacillin Sod/Tazobactam 50 mls @ 100 mls/hr 01/30/24 15:36 01/30/24 15:49 Sod 3.375 gm/ Sodium Chloride IV 01/30/24 16:05 100 mls/hr ONCE ONE Administration Vancomycin HCl 1,000 mg/ 250 mls @ 125 mls/hr 01/30/24 16:00 Sodium Chloride IV 01/30/24 17:59 ONCE ONE Miscellaneous 1 each 01/30/24 15:45 Vancomycin Consult Request NOTAPPLIC 02/29/24 15:44 [facility] Discontinued Medications Generic Name Dose Route Start Last Admin Trade Name Vivien PRN Reason Stop Dose Admin Dexamethasone Sodium Phosphate 10 mg 01/30/24 15:35 01/30/24 15:49 Dexamethasone 4mg/Ml 1ml Vial IV 01/30/24 15:36 10 mg ONCE ONE Administration ORDERS Category Date Time Status CT head/brain wo con Stat Cat Scan 01/30/24 14:07 Completed CXR --portable [XR chest portable] Stat Exams 01/30/24 14:07 Completed Activated Partial Thrombo Time Stat Lab 01/30/24 14:12 Completed BNP [NT Pro Brain Natriuretic Pep.] Stat Lab 01/30/24 14:12 Completed CRP [C-Reactive Protein] Stat Lab 01/30/24 14:12 Completed Complete Blood Count Auto Diff Stat Lab 01/30/24 14:12 Completed Comprehensive Metabolic Panel Stat Lab 01/30/24 14:12 Completed Lactic Acid Stat Lab 01/30/24 14:12 Completed Magnesium Stat Lab 01/30/24 14:12 Completed Procalcitonin Stat Lab 01/30/24 14:12 Completed Prothrombin Time INR Stat Lab 01/30/24 14:12 Completed T4 (Thyroxine) Stat Lab 01/30/24 14:12 Completed TSH [Thyroid Stimulating Hormone] Stat Lab 01/30/24 14:12 Completed Trop I [Troponin I] Stat Lab 01/30/24 14:12 Completed Troponin I Q3H Lab 01/30/24 17:15 Ordered Troponin I Q3H Lab 01/30/24 20:15 Ordered UA [Urinalysis and Microscopic] Stat Lab 01/30/24 15:25 Ordered Blood Culture Stat Micro 01/30/24 14:12 Received VBG [Venous Blood Gas] Stat RT 01/30/24 14:07 Completed ECG Data Tracing #1: I reviewed this ECG and interpreted as documented below: Paced rhythm at [address] elevations concerning for ischemia. ECG initial impression date: 01/30/24 ECG initial impression time: 14:12 Medical Decision Narrative: In summary, this patient is a 83-year-old male presenting to the Emergency Department for evaluation of low blood pressure, low oxygen, low temperature, and lethargy in the setting of recent diagnosis of COVID-19. Differential diagnoses considered include but are not limited to pneumonia, sepsis, CO2 narcosis, intracranial hemorrhage, CVA, CHF, ACS ruling out the most morbid conditions drove assessment. It should be noted patient's history includes atrial fibrillation status post pacemaker placement, hypertension, hyperlipidemia, dementia which may or may not be at goal therapy. This complicates all aspects of care by increasing patient's risk for morbidity. On exam, the patient is GCS of 13. He is lethargic but arouses to voice. He has baseline dementia which limits history. He is hypotensive with systolic in the 80s and also is requiring 4 L nasal cannula. workup included broad lab evaluation to evaluate for infectious, cardiac, metabolic derangements. Blood cultures were sent and are pending. Also obtain CT head without contrast and chest x-ray. EKG was obtained that demonstrated paced rhythm with no acute STEMI. Given the patient is hypotensive and appears clinically dry on exam without known history of heart failure, I did administer sepsis bolus of IV fluids. I independently interpreted XR and CT prior to the radiologist read and noted no acute intracranial hemorrhage or obvious space-occupying lesion, no large focal pneumonia. Please see their read for final interpretation. Labs were obtained that demonstrated mild ADDISON with a creatinine of 1.3, but we do not have a baseline in the last 2 years. Otherwise, his labs are actually reassuring with no significant leukocytosis or elevated lactic acid. Ultimately, it is possible this could be septic shock, so he is given a sepsis bolus. He seems to be responsive to fluids with improvement in his blood pressure from the 60 systolic to 100 systolic. He is fluctuated in the 90-100 range. Unclear if he got his home blood pressure medications or not, but I know he did get oxycodone prior to arrival. Given he has a pulmonary source of infection with a nasty, wet hacking cough and rhonchi bilaterally, I did give him broad-spectrum antibiotics including vancomycin and Zosyn. Ultimately, feel he would benefit from admission for continued monitoring of his blood pressure, so I had an interactive discussion with the hospitalist who admitted the patient for further evaluation and management. He is admitted in stable condition Critical Care Critical Care Time Critical Care Time: Yes Attestation: On 01/30/24, the high probability of a clinically significant, sudden or life threatening deterioration of the following system(s) required my full and direct attention, intervention and personal management. The time I documented below is in addition to time spent performing reported procedures but includes the following listed in this critical care notation. Total Time Total Critical Care Time: 30
--- NOTE | 2024-01-30 14:11 | ECG_ITS ---
APPROVED REPORT Exam: Resting ECG HR:60 bpm ECG Measurements Heart Rate 60 AXES AZ 193 P 245 QRSd 157 QRS 69 QT 457 T 84 QTc 457 Conclusion ELECTRONIC ATRIAL PACEMAKER ELECTRONIC VENTRICULAR PACEMAKER ABNORMAL RHYTHM ECG Electronically signed by : IRIS CROWLEY, 01/30/2024 15:53:49
[2024-01-30 14:23] LABS: Basophils # 0.1 K/mm3 (0-0.2); Basophils % 0.7 % (0.1-2.0); Eosinophils # 0.1 K/mm3 (0.0-0.4); Eosinophils % 1.6 % (0.1-12.0); Hematocrit 38.7 % (42.0-52.0); Hemoglobin 12.3 g/dL (14.1-18.0); Lymphocytes # 1.9 K/mm3 (0.7-4.5); Mean Corpuscular HGB Conc 31.8 g/dL (31.8-35.4); Mean Corpuscular Hemoglobin 31.2 pg (27.0-31.2); Mean Corpuscular Volume 98.2 fl (80-94); Mean Platelet Volume 8.5 fl (7.4-10.4); Monocytes # 0.6 K/mm3 (0.1-1.0); Neutrophils # 4.6 K/mm3 (1.8-7.8); Neutrophils % 63.6 % (37.0-80.0); Platelet Count 179 K/mm3 (142-424); Red Blood Count 3.94 M/mm3 (4.60-6.20); Red Cell Distribution Width 14.1 % (11.5-17.5); White Blood Count 7.2 K/mm3 (4.8-10.8)
[2024-01-30 14:24] LABS: VBG Base Excess 1.3 mmol/L (-2.4-2.3); VBG HCO3 25.7 mmol/L (23-30); VBG Oxygen Saturation 95.4 % (50-70); VBG PCO2 40.7 mmol/L (35-51); VBG PH 7.42 mmol/L (7.31-7.41); VBG PO2 75.3 mmol/L (28-40)
[2024-01-30] MEDS: LACTATED RINGERS 900 ML IV (14:31)
--- NOTE | 2024-01-30 14:31 | PC.NURSE ---
Pt brief changed, male purewick placed, no other needs voiced at this time.
--- NOTE | 2024-01-30 14:34 | PC.NURSE ---
Pt gone to RAD via stretcher
[2024-01-30 14:36] LABS: Activated Partial Thrombo Time 26.6 seconds (22.8-30.6); INR 0.97 (0.9-1.1); Prothrombin Time 10.9 seconds (10.1-12.5)
[2024-01-30 14:40] LABS: Alanine Aminotransferase 19 U/L (12-78); Albumin Level 3.1 g/dl (3.5-5.0); Albumin/Globulin Ratio 1.1 (1.1-1.8); Alkaline Phosphatase 44 U/L (38-126); Anion Gap 5.2 mEq/L (5-15); Aspartate Amino Transferase 26 U/L (17-59); Bilirubin,Total 0.5 mg/dl (0.2-1.3); Blood Urea Nitrogen 32 mg/dl (9-20); Calcium 8.5 mg/dl (8.4-10.2); Carbon Dioxide 29 mmol/L (22.0-30.0); Chloride 105 mmol/L (98-107); Creatinine Clearance Estimated 38 mL/min (50-200); Estimated Glomerular Filt Rate 53 ml/min (>60); GFR (African American) 64 ML/MIN (>60); Globulin 2.9 g/dL (1.3-3.2); Glucose 116 mg/dl (74-100); Potassium 4.2 mmoL/L (3.5-5.1); Sodium 135 mmol/L (136-145)
[2024-01-30 14:45] LABS: C-Reactive Protein 127.2 mg/L (0-4)
--- NOTE | 2024-01-30 14:45 | PC.NURSE ---
Pt returned to room from RAD
[2024-01-30 14:55] LABS: NT Pro Brain Natriuretic Pep. 2760 pg/mL (0-450); Troponin I 0.02 ng/ml (0.00-0.034)
[2024-01-30 14:57] LABS: Lactic Acid 1.5 mmol/L (0.7-2.1)
[2024-01-30 15:00] LABS: Procalcitonin 0.574 ng/mL (0.0-2.0)
[2024-01-30 15:14] LABS: Thyroid Stimulating Hormone 0.59 uIU/mL (0.465-4.68)
[2024-01-30] MEDS: PIPERACILLIN/TAZO 3.375 GM in 0.9 % SODIUM CHLORIDE 50 ML IV (15:49)
[2024-01-30] MEDS: DEXAMETHASONE 4MG/ML 1ML VIAL 10 MG IV (15:49)
--- NOTE | 2024-01-30 16:00 | EXP.HP ---
History of Present Illness *Admission Date: 01/30/24 *Reason for visit:: Confusion, hypotension *History of present illness: Mr. Paz is an 83-year-old male with a history of dementia, hypertension, hyperlipidemia, and atrial fibrillation presenting to the emergency department for evaluation with concern for low blood pressure and altered mental status. Family at bedside reports patient was diagnosed with COVID-19 yesterday. He presented via EMS after EMS was called due to concern for low blood pressure. was with him at the senior living around lunchtime when his nurse checked on him and was concerned because he was altered. They checked his blood pressure and it was noted to be systolics in the 50s. EMS on arrival administer bolus and brought the patient to the ER for further management. Did receive a dose of oxycodone today which seemed to precede his lethargy along with his normal morning medications for blood pressure. In the ER, was administered bolus IV fluids due to persistent hypotension. Workup concerning for sepsis and oxygen requirement. Given his change in mentation, hypotension, patient was initiated on broad-spectrum antibiotics for sepsis and medicine was consulted for admission. On evaluation, patient is on 4 L nasal cannula for appropriate oxygen saturation. Blood pressures with systolics 90-100. Heart rate controlled in the 60s. Patient is afebrile. Family at bedside. Discussed goals of care, open to adding vasopressors if becomes more hypotensive. States the patient is DNR. [facility] Disclaimer: The information contained in this section may have been updated after the patient was seen, as this information can be updated by other users. Medical History Arthritis Pacemaker Hyperlipidemia Hypertension Atrial fibrillation Family History (Updated 01/30/24 @ 18:22 by Brie Espinal RN) Other Dementia No significant family history Social History Smoking Status: Unknown if ever smoked alcohol intake: never current occupational status: retired Travel in the last 8 weeks: None household members: spouse housing: senior living Review of Systems Review of Systems Review of systems:: unable to obtain Meds Home Medications and Allergies Home Medications ?Medication ?Instructions ?Recorded ?Confirmed ?Type atorvastatin 80 mg tablet 80 mg PO HS Cholesterol 09/03/17 02/07/22 History aspirin 81 mg tablet 81 mg PO DAILY Heart disease 01/30/22 02/07/22 History donepezil 10 mg tablet 10 mg PO DAILY memory 01/30/22 02/07/22 History fluoxetine 20 mg capsule 20 mg PO DAILY mood 01/30/22 02/07/22 History lisinopril 40 mg tablet 40 mg PO DAILY High blood pressure 01/30/22 02/07/22 History memantine 10 mg tablet 10 mg PO BID memory 01/30/22 02/07/22 History quetiapine 25 mg tablet 25 mg PO BIDP PRN mood 01/30/22 02/07/22 History carvedilol 12.5 mg tablet 12.5 mg PO BID High blood pressure 02/07/22 02/07/22 History hydrochlorothiazide 25 mg tablet 25 mg PO DAILY High blood pressure 02/07/22 02/07/22 History hydrocodone 5 mg-acetaminophen 325 1 tab PO TID Pain 02/07/22 02/07/22 History mg tablet sennosides 8.6 mg-docusate sodium 1 tab PO HS constipation 02/07/22 02/07/22 History 50 mg tablet (Stool Softener-Stimulant Laxative) New Prescriptions to Start Prescriptions: Allergies Allergy/AdvReac Type Severity Reaction Status Date / Time No Known Allergies Allergy Verified 01/30/24 14:31 Exam Data for Last 24 hours Vital signs and Labs for Last 24 Hours: Temp Pulse Resp BP Pulse Ox O2 Del Method O2 Flow Rate 98.1 F 61 14 96/51 L 98 Nasal Cannula 2 01/30/24 14:16 01/30/24 15:16 01/30/24 14:16 01/30/24 15:16 01/30/24 15:16 01/30/24 15:16 01/30/24 15:00 Laboratory Results - last 24 hr 01/30/24 14:07: VBG pH 7.42 H, VBG pCO2 40.7, VBG pO2 75.3 H, VBG HCO3 25.7, VBG Total CO2 27.0, VBG O2 Saturation 95.4 H, VBG Base Excess 1.3, VBG Lactic Acid 2.0 01/30/24 14:12: WBC 7.2, RBC 3.94 L, Hgb 12.3 L, Hct 38.7 L, MCV 98.2 H, MCH 31.2, MCHC 31.8, RDW 14.1, Plt Count 179, MPV 8.5, Neut % (Auto) 63.6, Lymph % (Auto) 26.0, [place] % (Auto) 8.0, Eos % (Auto) 1.6, Baso % (Auto) 0.7, Neut # (Auto) 4.6, Lymph # (Auto) 1.9, [place] # (Auto) 0.6, Eos # (Auto) 0.1, Baso # (Auto) 0.1, PT 10.9, INR 0.97, APTT 26.6, Sodium 135 L, Potassium 4.2, Chloride 105, Carbon Dioxide 29, Anion Gap 5.2, BUN 32 H, Creatinine 1.30 H, Estimated Creat Clear 38, Estimated GFR 53 L, Est GFR ( Amer) 64, Glucose 116 H, Lactate 1.5, Calcium 8.5, Magnesium 2.0, Total Bilirubin 0.5, AST 26, ALT 19, Alkaline Phosphatase 44, Troponin I 0.02, C-Reactive Protein 127.2 H, NT-Pro-B Natriuret Pep 2760 H, Total Protein 6.0 L, Albumin 3.1 L, Globulin 2.9, Albumin/Globulin Ratio 1.1, Procalcitonin 0.574, TSH 0.59, Thyroxine (T4) 6.0 I & O for Last 24 hours: Intake & Output 01/27/24 01/28/24 01/29/24 01/30/24 23:59 23:59 23:59 23:59 Weight 63.957 kg Constitutional Constitutional: mild distress, cachectic, chronically ill appearing and somnolent *Routine HEENT Exam Head: Present normocephalic and atraumatic Eye: Present EOMI and PERRL ENT: Present mucous membranes moist *Routine Neck Exam Neck: Present supple; Absent JVD Routine Chest/Breast/Axilla Exam Chest wall: Absent tenderness *Routine Respiratory Exam Respiratory: Present CTA bilaterally; Absent accessory muscle use, respiratory distress, rhonchi, wheezes or crackles *Routine Cardiovascular Exam Cardiovascular: Present RRR, Normal S1 and Normal S2; Absent murmur *Routine Abdominal Exam Abdominal: Present soft and normoactive bowel sounds; Absent tenderness or distended Comments: scaphoid *Routine Rectal Exam Rectal:: deferred *Routine Genitalia Exam Genitalia:: deferred *Routine Extremities Exam Extremities: Absent cyanosis, clubbing or edema Comments: thin extremities *Routine Skin Exam Skin: Present intact; Absent cyanosis or erythema *Routine Neurological Exam Neurological: Present altered mental status; Absent alert Routine Psychiatric Exam Psychiatric: Present normal affect and normal thought process; Absent suicidal ideation or homicidal ideation Assessment and Plan *Assessment and plan (1) Sepsis: Status: Acute Category: Medical Code(s): A41.9 - Sepsis, unspecified organism (2) COVID-19: Status: Acute Category: Medical Code(s): U07.1 - COVID-19 (3) ADDISON (acute kidney injury): Status: Acute Category: Medical Code(s): N17.9 - Acute kidney failure, unspecified (4) UTI (urinary tract infection): Status: Acute Category: Medical Code(s): N39.0 - Urinary tract infection, site not specified (5) Dementia: Status: Chronic Qualifiers: Dementia behavioral disturbance: without behavioral disturbance Dementia type: unspecified type Qualified Code(s): F03.90 - Unspecified dementia without behavioral disturbance Category: Medical Code(s): F03.90 - Unspecified dementia, unspecified severity, without behavioral disturbance, psychotic disturbance, mood disturbance, and anxiety (6) Severe protein-calorie malnutrition: Status: Chronic Category: Medical Code(s): E43 - Unspecified severe protein-calorie malnutrition (7) Atrial fibrillation: Status: Acute Category: Medical Code(s): I48.91 - Unspecified atrial fibrillation (8) Hypertension: Status: Acute Category: Medical Code(s): I10 - Essential (primary) hypertension Plan 83-year-old with history of dementia, hypertension, A-fib who presented to the ER with altered mental status and hypotension. Recent diagnosis of COVID. Workup in the ER with persistent hypotension. Medicine consulted for admission and further management. I agreed to admit for IV antibiotics. Urine returned abnormal. Patient responding to fluids. Will hold off vasopressors for the time being. Problems addressed as follows: COVID-19 UTI Hypotension -Urine grossly abnormal. Blood cultures and urine cultures pending. Patient encephalopathic and altered from baseline. - Continue ceftriaxone 2 g daily and vancomycin daily. Supplemental oxygen as needed for goal sats greater 90%. -Full respiratory panel pending to confirm COVID diagnosis. -Holding blood pressure medications in the setting of hypotension Dementia: Complicates all aspects of his care.. New donepezil 10 mg tex and memantine 10 mg twice daily for memory A-fib: Will hold blood pressure and rate controlling medications given he is well-controlled at this time and hypotensive. Reevaluate need for rate controlling medication given improvement and blood pressure Met sodium 135, magnesium 4.2, lactate 1.5, BUN 32, creatinine 1.3, consistent with CKD versus slight ADDISON. Repeat CBC, CMP, magnesium ordered for the morning. CRP elevated at 127. White counts presently normal at 7.2. DNR Regular diet Lovenox 40 mg subcu daily
[2024-01-30 16:03] LABS: Appearance,Urine CLEAR (Clear); Bilirubin,Urine Negative (Negative); Blood, Urine 1+ (Negative); Color,Urine YELLOW (Yellow); Glucose,Urine (UA) Negative (Negative); Ketones,Urine Negative (Negative); Leukocyte Esterase,Urine TRACE (Negative); Microscopic, Urine URINE MICROSCOPIC (MICROSCOPIC); Nitrate,Urine Negative (Negative); Protein,Urine TRACE (Negative); Urobilinogen,Urine 0.2 EU/dl (0.2)
[2024-01-30 16:10] LABS: Bacteria,Urine 2+ /lpf; WBC,Urine 20-50 #/hpf (0-3)
[2024-01-30 16:11] LABS: Hyaline Casts,Urine OCC #/lpf (0)
--- NOTE | 2024-01-30 17:38 | PC.NURSE ---
Report called to CECILIA LAZARO
--- NOTE | 2024-01-30 17:48 | PC.NURSE ---
arrived by stretcher from ED
[2024-01-30] MEDS: VANCOMYCIN HCL 1,000 MG in 0.9 % SODIUM CHLORIDE 250 ML 125 MG IV (18:06)
[2024-01-30] MEDS: ENOXAPARIN 40MG/0.4ML SYRINGE 40 MG SQ (18:08)
[2024-01-30] MEDS: VANCOMYCIN CONSULT REQUEST 1 EACH NOTAPPLIC (18:09)
[2024-01-30 18:18] LABS: Troponin I 0.01 ng/ml (0.00-0.034)
[2024-01-30 18:45] LABS: Adenovirus,PCR Not Detected (NotDetected); Bordetella Pertussis Not Detected (NotDetected); Chlamydophila Pneumoniae, PCR Not Detected (NotDetected); Coronavirus 229E Not Detected (NotDetected); Coronavirus NL63 Not Detected (NotDetected); Coronavirus OC43 Not Detected (NotDetected); Coronovirus HKU1,PCR Not Detected (NotDetected); Human Metapneumovirus Not Detected (NotDetected); Influenza A, PCR Not Detected (NotDetected); Influenza AH1, 2009 Not Detected (NotDetected); Influenza AH1, PCR Not Detected (NotDetected); Influenza AH3,PCR Not Detected (NotDetected); Influenza B, PCR Not Detected (NotDetected); Mycoplasma Pneumoniae, PCR Not Detected (NotDetected); Parainfluenza 1, PCR Not Detected (NotDetected); Parainfluenza 2, PCR Not Detected (NotDetected); Parainfluenza 3, PCR Not Detected (NotDetected); Parainfluenza 4, PCR Not Detected (NotDetected); Respiratory Syncytial Virus Not Detected (NotDetected); Rhinovirus/Enterovirus Not Detected (NotDetected)
[2024-01-30 20:03] LABS: Coronavirus 19, PCR Detected (NotDetected)
[2024-01-30] MEDS: CEFTRIAXONE SODIUM 2 GM in 0.9 % SODIUM CHLORIDE 100 ML IV (20:32)
[2024-01-30 21:56] LABS: Chloride 104 mmol/L (98-107); Potassium 4.1 mmoL/L (3.5-5.1); Sodium 139 mmol/L (136-145)
[2024-01-30 21:59] LABS: Anion Gap 11.1 mEq/L (5-15); Blood Urea Nitrogen 31 mg/dl (9-20); Calcium 8.4 mg/dl (8.4-10.2); Carbon Dioxide 28 mmol/L (22.0-30.0); Creatinine Clearance Estimated 45 mL/min (50-200); Estimated Glomerular Filt Rate 64 ml/min (>60); GFR (African American) 77 ML/MIN (>60); Glucose 142 mg/dl (74-100)
[2024-01-30 22:10] LABS: Troponin I 0.02 ng/ml (0.00-0.034)
[2024-01-30 22:34] LABS: POC Glucose,Bedside 138 (70-110)
[2024-01-31] VITALS (7 sets, daily range): BP systolic 112–166; BP diastolic 35–84; PULSE 60–68; RESP 16–20; TEMP 36.6–36.7; O2SAT 95–100; BMI 20.9
--- NOTE | 2024-01-31 05:21 | PC.NURSE ---
this patient has a decent night. He does get extremely agitated when moved around alot or when trying to change him. He likes to try to hit and will grab ahold of you. Once he is left alone though and covered back up he will go back to sleep and be okay. He has slept most of the night other than the times we had to change him. His blood pressure have been soft through the night but when awoken will increase. Dr is aware. Patient also refused to take his oral medication he yelled get away from me and put up his fists. Dr is also aware of that. When i came on shift patient was on 3L NC. Patient was titrated down to RA and it 100% on RA currently. When awake patient has a strong cough and is able to clear his lungs. Family called and will be back to day to sit with him. While changing him at one point RN noticed blood coming out of his male genital region, no bruising was noted anywhere. was made aware. no other issues this shift.
[2024-01-31 06:46] LABS: POC Glucose,Bedside 137 (70-110)
[2024-01-31 06:55] LABS: Basophils % 0.4 % (0.1-2.0); Eosinophils % 0.1 % (0.1-12.0); Hemoglobin 12.7 g/dL (14.1-18.0); Lymphocytes % 21.4 % (10-50); Mean Corpuscular HGB Conc 30.9 g/dL (31.8-35.4); Mean Corpuscular Hemoglobin 30.7 pg (27.0-31.2); Mean Corpuscular Volume 99.3 fl (80-94); Mean Platelet Volume 7.7 fl (7.4-10.4); Monocytes # 0.2 K/mm3 (0.1-1.0); Monocytes % 3.4 % (1.7-9.3); Neutrophils # 3.5 K/mm3 (1.8-7.8); Neutrophils % 74.7 % (37.0-80.0); Platelet Count 153 K/mm3 (142-424); Red Blood Count 4.13 M/mm3 (4.60-6.20); Red Cell Distribution Width 13.9 % (11.5-17.5); White Blood Count 4.7 K/mm3 (4.8-10.8)
[2024-01-31 07:08] LABS: Alanine Aminotransferase 22 U/L (12-78); Albumin Level 3.2 g/dl (3.5-5.0); Alkaline Phosphatase 52 U/L (38-126); Aspartate Amino Transferase 26 U/L (17-59); Bilirubin,Total 0.3 mg/dl (0.2-1.3); Blood Urea Nitrogen 31 mg/dl (9-20); Carbon Dioxide 28 mmol/L (22.0-30.0); Chloride 107 mmol/L (98-107); Creatinine Clearance Estimated 50 mL/min (50-200); Estimated Glomerular Filt Rate 80 ml/min (>60); GFR (African American) 97 ML/MIN (>60); Globulin 3.1 g/dL (1.3-3.2); Glucose 125 mg/dl (74-100); Total Protein,Serum 6.3 g/dl (6.3-8.2)
[2024-01-31 07:09] LABS: Anion Gap 8.5 mEq/L (5-15); Magnesium 2.1 mg/dl (1.6-2.3); Potassium 4.5 mmoL/L (3.5-5.1); Sodium 139 mmol/L (136-145)
--- NOTE | 2024-01-31 07:51 | EXP.DC.SUM ---
General Admission date:: 01/30/24 Discharge date: 01/31/24 HPI HPI HPI: Mr. Paz is an 83-year-old male with a history of dementia, hypertension, hyperlipidemia, and atrial fibrillation presenting to the emergency department for evaluation with concern for low blood pressure and altered mental status. Family at bedside reports patient was diagnosed with COVID-19 yesterday. He presented via EMS after EMS was called due to concern for low blood pressure. was with him at the [facility] around lunchtime when his nurse checked on him and was concerned because he was altered. They checked his blood pressure and it was noted to be systolics in the 50s. EMS on arrival administer bolus and brought the patient to the ER for further management. Did receive a dose of oxycodone today which seemed to precede his lethargy along with his normal morning medications for blood pressure. In the ER, was administered bolus IV fluids due to persistent hypotension. Workup concerning for sepsis and oxygen requirement. Given his change in mentation, hypotension, patient was initiated on broad-spectrum antibiotics for sepsis and medicine was consulted for admission. On evaluation, patient is on 4 L nasal cannula for appropriate oxygen saturation. Blood pressures with systolics 90-100. Heart rate controlled in the 60s. Patient is afebrile. Family at bedside. Discussed goals of care, open to adding vasopressors if becomes more hypotensive. States the patient is DNR. Hospital Course Hospital Course Hospital Course: 83-year-old with history of dementia, hypertension, A-fib who presented to the ER with altered mental status and hypotension. Recent diagnosis of COVID. Workup in the ER with persistent hypotension. Medicine consulted for admission and further management. I agreed to admit for IV antibiotics. Urine returned abnormal. Patient responding to fluids. Did not require vasopressors during admission. Blood pressure normalized by morning. White cell count remained normal. Concerned that he had medication side effect causing his hypotension. Back to baseline mentation by morning. Given his clinical improvement and stability, will make adjustments to medication regimen and discharged back to nursing facility for further management. Problems addressed as follows: COVID-19 UTI Hypotension -Presented with hypotension. Did not meet sepsis criteria as he had a normal white count, normal heart rate, normal respiratory rate. No neutrophil predominance or left shift. Confused on admission. Improved overnight after blood pressure normalized. Repeat labs remained normal with white count of 4.7, hemoglobin 12.7. Kidney function with BUN of 31, creatinine 0.9 which is at patient's baseline. Given his clinical stability, will discharge on room air back to [facility] for further management. Concern for UTI given his grossly abnormal urinalysis obtained via In-N-Out cath. Urine culture still pending. Transition to cefdinir to complete 5 days total of antibiotics. Full respiratory panel was positive for COVID only. Adjustments to be made to his blood pressure regimen. Holding lisinopril. Hold HCTZ. Recommend continuing carvedilol at decreased dose of 12.5 mg twice daily. Further management with close monitoring of blood pressure at nursing facility. Dementia: Complicates all aspects of his care. Continue donepezil 10 mg daily and memantine 10 mg twice daily for memory A-fib: Continue carvedilol 12.5 mg twice daily. Extensive discussion with family and daughter at bedside on day of discharge about patient's condition and treatment plan. Total time spent on discharge 32 minutes in counseling, documentation, chart review, and direct care with patient. Exam Data for Last 24 hours Vital signs and Labs for Last 24 Hours: Temp Pulse Resp BP Pulse Ox O2 Del Method O2 Flow Rate 97.9 F 67 18 120/35 L 100 Room Air 1 01/31/24 04:00 01/31/24 06:00 01/31/24 06:00 01/31/24 06:00 01/31/24 06:00 01/31/24 06:53 01/31/24 01:00 Laboratory Results - last 24 hr 01/30/24 14:07: VBG pH 7.42 H, VBG pCO2 40.7, VBG pO2 75.3 H, VBG HCO3 25.7, VBG Total CO2 27.0, VBG O2 Saturation 95.4 H, VBG Base Excess 1.3, VBG Lactic Acid 2.0 01/30/24 14:12: WBC 7.2, RBC 3.94 L, Hgb 12.3 L, Hct 38.7 L, MCV 98.2 H, MCH 31.2, MCHC 31.8, RDW 14.1, Plt Count 179, MPV 8.5, Neut % (Auto) 63.6, Lymph % (Auto) 26.0, [place] % (Auto) 8.0, Eos % (Auto) 1.6, Baso % (Auto) 0.7, Neut # (Auto) 4.6, Lymph # (Auto) 1.9, [place] # (Auto) 0.6, Eos # (Auto) 0.1, Baso # (Auto) 0.1, PT 10.9, INR 0.97, APTT 26.6, Sodium 135 L, Potassium 4.2, Chloride 105, Carbon Dioxide 29, Anion Gap 5.2, BUN 32 H, Creatinine 1.30 H, Estimated Creat Clear 38, Estimated GFR 53 L, Est GFR ( Amer) 64, Glucose 116 H, Lactate 1.5, Calcium 8.5, Magnesium 2.0, Total Bilirubin 0.5, AST 26, ALT 19, Alkaline Phosphatase 44, Troponin I 0.02, C-Reactive Protein 127.2 H, NT-Pro-B Natriuret Pep 2760 H, Total Protein 6.0 L, Albumin 3.1 L, Globulin 2.9, Albumin/Globulin Ratio 1.1, Procalcitonin 0.574, TSH 0.59, Thyroxine (T4) 6.0 01/30/24 15:46: Chlamy pneumoniae PCR Not detected, Adenovirus (PCR) Not detected, B. pertussis DNA (PCR) Not detected, Coronavirus OC43 (PCR) Not detected, Coronavirus HKU1 (PCR) Not detected, Coronavirus 229E (PCR) Not detected, SARS-CoV-2 (PCR) Detected A, Coronavirus NL63 (PCR) Not detected, Human Metapneumovir PCR Not detected, Influenza A (H1) PCR Not detected, Influ A (H1N1/09) PCR Not detected, Influenza A (H3) PCR Not detected, Influenza Type A (PCR) Not detected, Influenza Type B (PCR) Not detected, M. pneumoniae (PCR) Not detected, Parainfluenza 1 (PCR) Not detected, Parainfluenza 2 (PCR) Not detected, Parainfluenza 3 (PCR) Not detected, Parainfluenza 4 (PCR) Not detected, RSV (PCR) Not detected, Entero/Rhino (PCR) Not detected 01/30/24 15:59: Urine Color Yellow, Urine Appearance Clear, Urine pH 6.0, Ur Specific [place] 1.020, Urine Protein Trace, Urine Glucose (UA) Negative, Urine Ketones Negative, Urine Blood 1+ A, Urine Nitrate Negative, Urine Bilirubin Negative, Urine Urobilinogen 0.2, Ur Leukocyte Esterase Trace, Urine RBC 10-20, Urine WBC 20-50, Ur Squamous Epith Cells 5-10, Urine Bacteria 2+, Hyaline Casts Occ 01/30/24 17:30: Troponin I 0.01 01/30/24 21:25: Sodium 139, Potassium 4.1, Chloride 104, Carbon Dioxide 28, Anion Gap 11.1, BUN 31 H, Creatinine 1.10, Estimated Creat Clear 45, Estimated GFR 64, Est GFR ( Amer) 77 D, Glucose 142 H D, Calcium 8.4, Troponin I 0.02 01/30/24 22:27: POC Glucose 138 H 01/31/24 06:35: WBC 4.7 L D, RBC 4.13 L, Hgb 12.7 L, Hct 41.0 L, MCV 99.3 H, MCH 30.7, MCHC 30.9 L, RDW 13.9, Plt Count 153, MPV 7.7, Neut % (Auto) 74.7, Lymph % (Auto) 21.4, [place] % (Auto) 3.4, Eos % (Auto) 0.1, Baso % (Auto) 0.4, Neut # (Auto) 3.5, Lymph # (Auto) 1.0, [place] # (Auto) 0.2, Eos # (Auto) 0.0, Baso # (Auto) 0.0, Sodium 139, Potassium 4.5, Chloride 107, Carbon Dioxide 28, Anion Gap 8.5, BUN 31 H, Creatinine 0.90, Estimated Creat Clear 50, Estimated GFR 80, Est GFR ( Amer) 97 D, Glucose 125 H, Calcium 9.0, Magnesium 2.1, Total Bilirubin 0.3, AST 26, ALT 22, Alkaline Phosphatase 52, Total Protein 6.3, Albumin 3.2 L, Globulin 3.1, Albumin/Globulin Ratio 1.0 L 01/31/24 06:38: POC Glucose 137 H I & O for Last 24 hours: Intake & Output 01/28/24 01/29/24 01/30/24 01/31/24 23:59 23:59 23:59 23:59 Weight 64.127 kg 64 kg Microbiology Reports for the Last 24 Hours: Microbiology 01/30/24 15:59 Urine,Ag Port Urine Culture - Preliminary 01/30/24 14:12 Blood Blood Culture - Preliminary Constitutional Constitutional: no acute distress, thin, chronically ill appearing and cooperative *Routine HEENT Exam Head: Present normocephalic Eye: Present EOMI and PERRL ENT: Present mucous membranes moist *Routine Neck Exam Neck: Present supple; Absent lymphadenopathy *Routine Respiratory Exam Respiratory: Present CTA bilaterally; Absent respiratory distress, rhonchi, wheezes or crackles *Routine Cardiovascular Exam Cardiovascular: Present RRR *Routine Abdominal Exam Abdominal: Present soft and normoactive bowel sounds; Absent tenderness *Routine Rectal Exam Patient deferred: visual exam *Routine Exam Patient deferred: penile exam *Routine Extremities Exam Extremities: Absent cyanosis, clubbing or edema Comments: Thin extremities *Routine Skin Exam Skin: Present warm; Absent rash *Routine Neurological Exam Neurological: Present alert and moving all extremities; Absent altered mental status Comments: Oriented to self. Short-term memory difficulty. Asked multiple times who I was. Asked where he was. Does not realize he has been in a fdc for 2 years. Results Data Completed and Pending Labs on day of discharge: Labs from last 24 hours 01/31/24 01/31/24 01/30/24 06:38 06:35 22:27 WBC 4.7 L D RBC 4.13 L Hgb 12.7 L Hct 41.0 L MCV 99.3 H MCH 30.7 MCHC 30.9 L RDW 13.9 Plt Count 153 MPV 7.7 Neut % (Auto) 74.7 Lymph % (Auto) 21.4 [place] % (Auto) 3.4 Eos % (Auto) 0.1 Baso % (Auto) 0.4 Neut # (Auto) 3.5 Lymph # (Auto) 1.0 [place] # (Auto) 0.2 Eos # (Auto) 0.0 Baso # (Auto) 0.0 PT INR APTT VBG pH VBG pCO2 VBG pO2 VBG HCO3 VBG Total CO2 VBG O2 Saturation VBG Base Excess VBG Lactic Acid Sodium 139 Potassium 4.5 Chloride 107 Carbon Dioxide 28 Anion Gap 8.5 BUN 31 H Creatinine 0.90 Estimated Creat Clear 50 Estimated GFR 80 Est GFR ( Amer) 97 D Glucose 125 H POC Glucose 137 H 138 H Lactate Calcium 9.0 Magnesium 2.1 Total Bilirubin 0.3 AST 26 ALT 22 Alkaline Phosphatase 52 Troponin I C-Reactive Protein NT-Pro-B Natriuret Pep Total Protein 6.3 Albumin 3.2 L Globulin 3.1 Albumin/Globulin Ratio 1.0 L Procalcitonin TSH Thyroxine (T4) Urine Color Urine Appearance Urine pH Ur Specific [place] Urine Protein Urine Glucose (UA) Urine Ketones Urine Blood Urine Nitrate Urine Bilirubin Urine Urobilinogen Ur Leukocyte Esterase Urine RBC Urine WBC Ur Squamous Epith Cells Urine Bacteria Hyaline Casts Chlamy pneumoniae PCR Adenovirus (PCR) B. pertussis DNA (PCR) Coronavirus OC43 (PCR) Coronavirus HKU1 (PCR) Coronavirus 229E (PCR) SARS-CoV-2 (PCR) Coronavirus NL63 (PCR) Human Metapneumovir PCR Influenza A (H1) PCR Influ A (H1N1/09) PCR Influenza A (H3) PCR Influenza Type A (PCR) Influenza Type B (PCR) M. pneumoniae (PCR) Parainfluenza 1 (PCR) Parainfluenza 2 (PCR) Parainfluenza 3 (PCR) Parainfluenza 4 (PCR) RSV (PCR) Entero/Rhino (PCR) 01/30/24 01/30/24 01/30/24 21:25 17:30 15:59 WBC RBC Hgb Hct MCV MCH MCHC RDW Plt Count MPV Neut % (Auto) Lymph % (Auto) [place] % (Auto) Eos % (Auto) Baso % (Auto) Neut # (Auto) Lymph # (Auto) [place] # (Auto) Eos # (Auto) Baso # (Auto) PT INR APTT VBG pH VBG pCO2 VBG pO2 VBG HCO3 VBG Total CO2 VBG O2 Saturation VBG Base Excess VBG Lactic Acid Sodium 139 Potassium 4.1 Chloride 104 Carbon Dioxide 28 Anion Gap 11.1 BUN 31 H Creatinine 1.10 Estimated Creat Clear 45 Estimated GFR 64 Est GFR ( Amer) 77 D Glucose 142 H D POC Glucose Lactate Calcium 8.4 Magnesium Total Bilirubin AST ALT Alkaline Phosphatase Troponin I 0.02 0.01 C-Reactive Protein NT-Pro-B Natriuret Pep Total Protein Albumin Globulin Albumin/Globulin Ratio Procalcitonin TSH Thyroxine (T4) Urine Color Yellow Urine Appearance Clear Urine pH 6.0 Ur Specific [place] 1.020 Urine Protein Trace Urine Glucose (UA) Negative Urine Ketones Negative Urine Blood 1+ A Urine Nitrate Negative Urine Bilirubin Negative Urine Urobilinogen 0.2 Ur Leukocyte Esterase Trace Urine RBC 10-20 Urine WBC 20-50 Ur Squamous Epith Cells 5-10 Urine Bacteria 2+ Hyaline Casts Occ Chlamy pneumoniae PCR Adenovirus (PCR) B. pertussis DNA (PCR) Coronavirus OC43 (PCR) Coronavirus HKU1 (PCR) Coronavirus 229E (PCR) SARS-CoV-2 (PCR) Coronavirus NL63 (PCR) Human Metapneumovir PCR Influenza A (H1) PCR Influ A (H1N1/09) PCR Influenza A (H3) PCR Influenza Type A (PCR) Influenza Type B (PCR) M. pneumoniae (PCR) Parainfluenza 1 (PCR) Parainfluenza 2 (PCR) Parainfluenza 3 (PCR) Parainfluenza 4 (PCR) RSV (PCR) Entero/Rhino (PCR) 01/30/24 01/30/24 01/30/24 15:46 14:12 14:07 WBC 7.2 RBC 3.94 L Hgb 12.3 L Hct 38.7 L MCV 98.2 H MCH 31.2 MCHC 31.8 RDW 14.1 Plt Count 179 MPV 8.5 Neut % (Auto) 63.6 Lymph % (Auto) 26.0 [place] % (Auto) 8.0 Eos % (Auto) 1.6 Baso % (Auto) 0.7 Neut # (Auto) 4.6 Lymph # (Auto) 1.9 [place] # (Auto) 0.6 Eos # (Auto) 0.1 Baso # (Auto) 0.1 PT 10.9 INR 0.97 APTT 26.6 VBG pH 7.42 H VBG pCO2 40.7 VBG pO2 75.3 H VBG HCO3 25.7 VBG Total CO2 27.0 VBG O2 Saturation 95.4 H VBG Base Excess 1.3 VBG Lactic Acid 2.0 Sodium 135 L Potassium 4.2 Chloride 105 Carbon Dioxide 29 Anion Gap 5.2 BUN 32 H Creatinine 1.30 H Estimated Creat Clear 38 Estimated GFR 53 L Est GFR ( Amer) 64 Glucose 116 H POC Glucose Lactate 1.5 Calcium 8.5 Magnesium 2.0 Total Bilirubin 0.5 AST 26 ALT 19 Alkaline Phosphatase 44 Troponin I 0.02 C-Reactive Protein 127.2 H NT-Pro-B Natriuret Pep 2760 H Total Protein 6.0 L Albumin 3.1 L Globulin 2.9 Albumin/Globulin Ratio 1.1 Procalcitonin 0.574 TSH 0.59 Thyroxine (T4) 6.0 Urine Color Urine Appearance Urine pH Ur Specific [place] Urine Protein Urine Glucose (UA) Urine Ketones Urine Blood Urine Nitrate Urine Bilirubin Urine Urobilinogen Ur Leukocyte Esterase Urine RBC Urine WBC Ur Squamous Epith Cells Urine Bacteria Hyaline Casts Chlamy pneumoniae PCR Not detected Adenovirus (PCR) Not detected B. pertussis DNA (PCR) Not detected Coronavirus OC43 (PCR) Not detected Coronavirus HKU1 (PCR) Not detected Coronavirus 229E (PCR) Not detected SARS-CoV-2 (PCR) Detected A Coronavirus NL63 (PCR) Not detected Human Metapneumovir PCR Not detected Influenza A (H1) PCR Not detected Influ A (H1N1/09) PCR Not detected Influenza A (H3) PCR Not detected Influenza Type A (PCR) Not detected Influenza Type B (PCR) Not detected M. pneumoniae (PCR) Not detected Parainfluenza 1 (PCR) Not detected Parainfluenza 2 (PCR) Not detected Parainfluenza 3 (PCR) Not detected Parainfluenza 4 (PCR) Not detected RSV (PCR) Not detected Entero/Rhino (PCR) Not detected Preliminary micro results at discharge 01/30/24 15:59 Urine Culture - Preliminary Urine,Ag Port 01/30/24 14:12 Blood Culture - Preliminary Blood DS: Diagnosis Discharge Diagnosis (1) COVID-19: Status: Acute Code(s): U07.1 - COVID-19 (2) Symptomatic hypotension: Status: Acute Code(s): I95.9 - Hypotension, unspecified (3) ADDISON (acute kidney injury): Status: Acute Code(s): N17.9 - Acute kidney failure, unspecified (4) UTI (urinary tract infection): Status: Acute Code(s): N39.0 - Urinary tract infection, site not specified (5) Dementia: Status: Chronic Code(s): F03.90 - Unspecified dementia, unspecified severity, without behavioral disturbance, psychotic disturbance, mood disturbance, and anxiety Qualifiers: Dementia behavioral disturbance: without behavioral disturbance Dementia type: unspecified type Qualified Code(s): F03.90 - Unspecified dementia without behavioral disturbance (6) Severe protein-calorie malnutrition: Status: Chronic Code(s): E43 - Unspecified severe protein-calorie malnutrition (7) Atrial fibrillation: Status: Chronic Code(s): I48.91 - Unspecified atrial fibrillation (8) Hypertension: Status: Chronic Code(s): I10 - Essential (primary) hypertension Meds Home Medications and Allergies Home Medications ?Medication ?Instructions ?Recorded ?Confirmed ?Type donepezil 10 mg tablet 10 mg PO DAILY memory 01/30/22 01/30/24 History fluoxetine 20 mg capsule 10 mg PO DAILY mood 01/30/22 01/30/24 History lisinopril 40 mg tablet 20 mg PO BID High blood pressure 01/30/22 01/30/24 History memantine 10 mg tablet 10 mg PO BID memory 01/30/22 01/30/24 History quetiapine 25 mg tablet 25 mg PO BIDP PRN mood 01/30/22 01/30/24 History hydrochlorothiazide 25 mg tablet 25 mg PO DAILY High blood pressure 02/07/22 01/30/24 History hydrocodone 5 mg-acetaminophen 325 1 tab PO TID Pain 02/07/22 01/30/24 History mg tablet sennosides 8.6 mg-docusate sodium 1 tab PO HS constipation 02/07/22 01/30/24 History 50 mg tablet (Stool Softener-Stimulant Laxative) aspirin 81 mg chewable tablet 81 mg PO DAILY 01/31/24 01/31/24 History carvedilol 12.5 mg tablet 12.5 mg PO BID High blood pressure 01/31/24 01/30/24 Rx 30 days #0 tabs cefdinir 300 mg capsule 300 mg PO BID 4 days #8 caps 01/31/24 Rx New Prescriptions to Start Prescriptions: Ck Zurita Allergies Allergy/AdvReac Type Severity Reaction Status Date / Time No Known Allergies Allergy Verified 01/30/24 14:31 Discharge Plan Disposition Patient Disposition: [facility] Condition: Fair Discharge Order Discharge Orders: Discharge Order (Routine); Ordered 01/31/24 Ordered By: Ck Martin Follow up Plan Prescriptions/Medication Reconciliation: New cefdinir 300 mg capsule 300 mg PO BID 4 Days Qty: 8 0RF Rx Instructions: first dose evening of 01/31/24 Continued hydrocodone-acetaminophen 5-325 mg tablet 1 tab PO TID sennosides-docusate sodium [Stool Softener-Stimulant Laxat] 8.6-50 mg tablet 1 tab PO HS quetiapine 25 mg tablet 25 mg PO BIDP PRN (Reason: mood) Patient Comments: pt takes usually just in AM donepezil 10 mg tablet 10 mg PO DAILY fluoxetine 20 mg capsule 10 mg PO DAILY memantine 10 mg tablet 10 mg PO BID aspirin 81 mg Tablet,Chewable 81 mg PO DAILY Changed carvedilol 12.5 mg tablet 12.5 mg PO BID 30 Days Qty: 0 0RF Held hydrochlorothiazide 25 mg tablet 25 mg PO DAILY Hold Instructions: pending improvement in BP lisinopril 40 mg tablet 20 mg PO BID Hold Instructions: pending normalization in BP Problem Reconciliation Problems Reviewed?: Yes Patient Discharge Instructions ACTIVITY: Continue current activity DIET: continue same diet Patient Instructions: Septic Shock Print Language: [place] Providers Primary Care Provider: Fernando Rick Admit Provider: Ck Martin Attending Provider: Ck Martin
[2024-01-31] MEDS: ASPIRIN 81MG CHEWABLE TABLET 81 MG PO (08:57)
[2024-01-31] MEDS: ENOXAPARIN 40MG/0.4ML SYRINGE 40 MG SQ (08:57)
[2024-01-31] MEDS: DONEPEZIL 10MG TAB 10 MG PO (08:57)
[2024-01-31] MEDS: CARVEDILOL 12.5MG TABLET 12.5 MG PO (08:58)
--- NOTE | 2024-01-31 12:00 | PC.NURSE ---
Attempted to call report to [facility] several times. [phone] no answer, sent to voicemail [phone] no answer, sent to voicemail [phone] no answer, sent to voicemail [phone] spoke with Germaine at desk, message to be relayed to [facility] staff to call for report.
[2024-01-31] MEDS: HYDROCODONE/APAP 5/325 MG TABLET 1 TAB PO (13:15)
== END 2024-01-31 13:45 ==
LOC: ER 15:37 → 2ND 16:22
PROVIDERS: Admitting Provider Internal Medicine Adolescent Medicine; Emergency Provider Emergency Medicine; PCP Internal Medicine Adolescent Medicine; Visit Provider Internal Medicine Adolescent Medicine
DX: A41.9 Sepsis, unspecified organism (principal); I95.9 Hypotension, unspecified; R41.82 Altered mental status, unspecified; U07.1 COVID-19; N17.9 Acute kidney failure, unspecified; N39.0 Urinary tract infection, site not specified; F03.90 Unspecified dementia, unspecified severity, without behavioral disturbance, psychotic disturbance, mood disturbance, and anxiety; E43 Unspecified severe protein-calorie malnutrition; Z68.20 Body mass index [BMI] 20.0-20.9, adult; I48.91 Unspecified atrial fibrillation; I10 Essential (primary) hypertension; Z95.0 Presence of cardiac pacemaker; Z79.899 Other long term (current) drug therapy
CPT/HCPCS: 36415; 70450; 71045; 80048; 80053; 81001; 82803; 82962; 83605; 83735; 83880; 84145; 84436; 84443; 84484; 85025; 85610; 85730; 86140; 87040; 87086; 87088; 87186; 87265; 87486; 87581; 87632; 87635; 93005; 94760; 99291; G0378; J0696; J1100; J1650; J2543; J3370; J7050; J7120